=== PATIENT | male | born 1955 | race Caucasian/White ===

== ENCOUNTER 2016-10-07 12:10 | Inpatient (IN) | payer OTHER ==
[~2016-10-07] VITALS: Ht 172.7 cm; Wt 96.2 kg
[2016-10-07] VITALS (8 sets, daily range): BP systolic 117–145; BP diastolic 62–74
--- NOTE | 2016-10-07 12:40 | PHYS DOC ---
Past Medical History Past Medical History: Anemia, Liver Disease Additional Past Medical Histor: HEP C,LIVER CANCER,CANCER REMOVED, Past Surgical History: No Surgical History, Other Additional Past Surgical Histo: VARICES BANDED Alcohol Use: Heavy Drug Use: Cocaine, Marijuana Adult General Chief Complaint Chief Complaint: NAUSEA/VOMITING/DIARRHA HPI HPI Patient is a 61 year old male who presents with nausea vomiting blood. He is in a correctional facility states he has a history of hep C and esophageal varices in addition to liver cancer that is in remission. He states approximately 3 AM this morning he woke up with some nausea and then at 4:30 vomited about a pint of right part of blood. He had some nausea during his MRI that he had somewhat later and then he vomited again approximately 2 hours prior to arrival which he said was some clotted blood and bright red blood. He denies any abdominal pain, chest pain, he states he does have some nausea currently. He states he's had histories of esophageal varices and he had bleeding approximately 10 years ago and then approximately 10 months ago. He states yesterday he had a completely normal day had a bowel movement without any blood in it or any dark stools. He currently is on no medications and takes no aspirin. Review of Systems Review of Systems Constitutional: Denies fever or chills [] Eyes: Denies change in visual acuity, redness, or eye pain [] HENT: Denies nasal congestion or sore throat [] Respiratory: Denies cough or shortness of breath [] Cardiovascular: No additional information not addressed in HPI [] GI: Denies abdominal pain, diarrhea , positive for nausea, vomiting blood : Denies dysuria or hematuria [] Musculoskeletal: Denies back pain or joint pain [] Integument: Denies rash or skin lesions [] Neurologic: Denies headache, focal weakness or sensory changes [] Endocrine: Denies polyuria or polydipsia [] Current Medications Current Medications Current Medications Medications (Trade) Dose Ordered Sig/Venita Start Time Stop Time Status Last Admin Dose Admin Octreotide Acetate/Sodium Chloride (Sandostatin/Iv Sodium Chloride 0.9% 100ml) 101 ml @ 0 mls/hr CONT PRN 10/07/16 15:15 UNV Ondansetron HCl (Zofran) 4 mg 1X ONCE 10/07/16 13:00 10/07/16 13:01 DC 10/07/16 13:14 4 MG Ondansetron HCl 4 mg 4 mg PRN Q8HRS PRN 10/07/16 14:30 10/08/16 14:29 Pantoprazole Sodium 40 mg 40 mg 1X ONCE 10/07/16 15:15 10/07/16 15:16 DC Phytonadione/ Sodium Chloride (Vitamin K/Iv Sodium Chloride 0.9% 50ml) 51 ml @ 102 mls/hr 1X ONCE 10/07/16 15:15 10/07/16 15:44 Allergies Allergies Allergies Coded Allergies Type Severity Reaction Last Updated Verified No Known Drug Allergies 10/07/16 No Physical Exam Physical Exam Constitutional: Well developed, well nourished, no acute distress, non-toxic appearance. [] HENT: Normocephalic, atraumatic, bilateral external ears normal, oropharynx moist, no oral exudates, nose normal. [] Eyes: PERRLA, EOMI, conjunctiva normal, no discharge. [] Neck: Normal range of motion, no tenderness, supple, no stridor. [] Cardiovascular:Heart rate regular rhythm, no murmur [] Lungs & Thorax: Bilateral breath sounds clear to auscultation [] Abdomen: Bowel sounds normal, soft, no tenderness, no masses, no pulsatile masses. [] Skin: Warm, dry, no erythema, no rash. [] Back: No tenderness, no CVA tenderness. [] Extremities: No tenderness, no cyanosis, no clubbing, ROM intact, no edema. [] Neurologic: Alert and oriented X 3, normal motor function, normal sensory function, no focal deficits noted. [] Psychologic: Affect normal, judgement normal, mood normal. [] Current Patient Data Vital Signs Vital Signs Date Time Temp Pulse Resp B/P Pulse Ox O2 Delivery O2 Flow Rate FiO2 10/07/16 12:17 98.2 101 18 142/88 97 Room Air 98.2 Lab Values Laboratory Tests Test 10/07/16 13:00 10/07/16 14:10 White Blood Count 6.1x10^3/uL (4.0-11.0) Red Blood Count 4.15x10^6/uL (4.30-5.70) L Hemoglobin 12.7g/dL (13.0-17.5) L Hematocrit 36.7% (39.0-53.0) L Mean Corpuscular Volume 89fL (79-100) Mean Corpuscular Hemoglobin 31pg (25-35) Mean Corpuscular Hemoglobin Concent 35g/dL (31-37) Red Cell Distribution Width 14.4% (11.5-14.5) Platelet Count 68x10^3/uL (140-400) L Neutrophils (%) (Auto) 85% (31-73) H Lymphocytes (%) (Auto) 9% (24-48) L Monocytes (%) (Auto) 6% (0-9) Eosinophils (%) (Auto) 0% (0-3) Basophils (%) (Auto) 0% (0-3) Neutrophils # (Auto) 5.2x10^3uL (1.8-7.7) Lymphocytes # (Auto) 0.5x10^3/uL (1.0-4.8) L Monocytes # (Auto) 0.4x10^3/uL (0.0-1.1) Eosinophils # (Auto) 0.0x10^3/uL (0.0-0.7) Basophils # (Auto) 0.0x10^3/uL (0.0-0.2) Prothrombin Time 17.3SEC (11.7-14.0) H Prothrombin Time INR 1.5 (0.8-1.1) H PTT 36SEC (24-38) Sodium Level 135mmol/L (136-145) L Potassium Level 5.1mmol/L (3.5-5.1) Chloride Level 103mmol/L (98-107) Carbon Dioxide Level 26mmol/L (21-32) Anion Gap 6 (6-14) Blood Urea Nitrogen 27mg/dL (8-26) H Creatinine 1.0mg/dL (0.7-1.3) Estimated GFR (Cockcroft-Gault) 76.5 Glucose Level 284mg/dL (70-99) H Calcium Level 8.4mg/dL (8.5-10.1) L Total Bilirubin 2.4mg/dL (0.2-1.0) H Direct Bilirubin 0.5mg/dL (0.0-0.2) H Aspartate Amino Transferase (AST) 29U/L (15-37) Alanine Aminotransferase (ALT) 28U/L (16-63) Alkaline Phosphatase 61U/L (46-116) Creatine Kinase 200U/L (39-308) Creatine Kinase MB (Mass) 1.6ng/mL (0.0-3.6) Creatine Kinase MB Relative Index 0.8% (0-4) Troponin I Quantitative < 0.017ng/mL (0.000-0.055) Total Protein 7.0g/dL (6.4-8.2) Albumin 3.4g/dL (3.4-5.0) Urine Collection Type Unknown Urine Color Yellow Urine Clarity Clear Urine pH 6.5 Urine Specific [place] >=1.030 Urine Protein Negativemg/dL (NEG-TRACE) Urine Glucose (UA) >=1000mg/dL (NEG) Urine Ketones (Stick) Tracemg/dL (NEG) Urine Blood Negative (NEG) Urine Nitrite Negative (NEG) Urine Bilirubin Negative (NEG) Urine Urobilinogen Dipstick 1.0mg/dL (0.2 mg/dL) Urine Leukocyte Esterase Negative (NEG) Urine RBC Rare/HPF (0-2) Urine WBC 0/HPF (0-4) Urine Squamous Epithelial Cells Occ/LPF Urine Bacteria 0/HPF (0-FEW) Laboratory Tests 10/07/16 13:00 Laboratory Tests 10/07/16 13:00 EKG EKG G shows sinus rhythm with a rate of [address] elevations, T-wave inversions in lead 3, left axis deviation, QTC 439 ms, as interpreted by me. Radiology/Procedures Radiology/Procedures [facility] [address] [place] [address] IMAGING REPORT Signed PATIENT: ROSEANNA ZHOU ACCOUNT: [id number] : 1955 LOCATION: ER AGE: 61 SEX: M EXAM STATUS: REG ER ORD. PHYSICIAN: CLAIRE GAYLE MD REASON: vomiting blood PROCEDURE: ACUTE ABDOMEN SERIES Abdomen series with chest, 3 views, 10/07/2016: History: Vomiting blood There is gas and stool scattered throughout the colon in a nonspecific pattern. No free air is seen in the abdomen. There is no evidence of organomegaly. Rim-like radiopacities projected over the right upper quadrant most likely represent gallstones. The heart size and pulmonary vascularity are normal. There are calcified mediastinal and left hilar lymph nodes. No pulmonary infiltrate is seen. There is no evidence of pleural fluid. IMPRESSION: 1. No acute abdominal abnormality is detected. 2. Cholelithiasis DICTATED and SIGNED BY: CATRINA GRAY MD DATE: 10/07/16 1323 CC: CLAIRE GAYLE MD; NO PCP ~ Impressions: GI bleed Hepatitis C History of esophageal varices Course & Med Decision Making Course & Med Decision Making Pertinent Labs and Imaging studies reviewed. (See chart for details) She has not had any vomiting or bowel movement since he's been in the department. His vitals were stable. He is being admitted to be watched overnight. I did place a consult with GI. Interim orders have been written. He is in stable condition be admitted to Dr. Mulligan. Marisela Disclaimer Marisela Disclaimer This electronic medical record was generated, in whole or in part, using a voice recognition dictation system. Departure Departure Impression: Primary Impression: GI bleed Disposition: ADMITTED INPATIENT Admitting Physician: Pao Mulligan Condition: STABLE CLAIRE GAYLE MD Oct 07, 2016 12:40
[2016-10-07] MEDS ORDERED: ONDANSETRON PF 4 MG/2 ML VIAL. IV ONE (13:00)
[2016-10-07 13:14] LABS: BASO % 0 % (0-3); EOS % 0 % (0-3); HEMATOCRIT 36.7 % (39.0-53.0); HEMOGLOBIN 12.7 g/dL (13.0-17.5); LYMPH # 0.5 x10^3/uL (1.0-4.8); LYMPH % 9 % (24-48); MEAN CORPUSCULAR HEMOGLOBIN 31 pg (25-35); MEAN CORPUSCULAR HGB CONC 35 g/dL (31-37); MEAN CORPUSCULAR VOLUME 89 fL (79-100); MONO % 6 % (0-9); NEUT % 85 % (31-73); PLATELET COUNT 68 x10^3/uL (140-400); RED BLOOD COUNT 4.15 x10^6/uL (4.30-5.70); RED CELL DISTRIBUTION WIDTH 14.4 % (11.5-14.5); WHITE BLOOD COUNT 6.1 x10^3/uL (4.0-11.0)
[2016-10-07 13:27] LABS: CALCIUM 8.4 mg/dL (8.5-10.1); GFR 76.5; POTASSIUM 5.1 mmol/L (3.5-5.1)
--- NOTE | 2016-10-07 13:27 | RAD ---
Abdomen series with chest, 3 views, 10/07/2016: History: Vomiting blood There is gas and stool scattered throughout the colon in a nonspecific pattern. No free air is seen in the abdomen. There is no evidence of organomegaly. Rim-like radiopacities projected over the right upper quadrant most likely represent gallstones. The heart size and pulmonary vascularity are normal. There are calcified mediastinal and left hilar lymph nodes. No pulmonary infiltrate is seen. There is no evidence of pleural fluid. IMPRESSION: 1. No acute abdominal abnormality is detected. 2. Cholelithiasis
[2016-10-07 13:28] LABS: INR 1.5 (0.8-1.1); PROTHROMBIN TIME PATIENT 17.3 SEC (11.7-14.0)
--- NOTE | 2016-10-07 13:28 | EKG ---
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
[2016-10-07 13:33] LABS: ALBUMIN 3.4 g/dL (3.4-5.0); DIRECT BILIRUBIN 0.5 mg/dL (0.0-0.2); TOTAL BILIRUBIN 2.4 mg/dL (0.2-1.0)
[2016-10-07 13:42] LABS: CKMB MASS 1.6 ng/mL (0.0-3.6)
[2016-10-07 14:28] LABS: BILIRUBIN,URINE NEGATIVE (NEG); GLUCOSE,URINE >=1000 mg/dL (NEG); NITRITE,URINE NEGATIVE (NEG); PH,URINE 6.5; PROTEIN,URINE NEGATIVE (NEG-TRACE)
[2016-10-07 14:30] LABS: BACTERIA,URINE 0 /HPF (0-FEW); RBC,URINE RARE /HPF (0-2); SQUAMOUS EPITHELIAL CELL,UR OCC /LPF; WBC,URINE 0 /HPF (0-4)
[2016-10-07] MEDS ORDERED: ONDANSETRON PF 4 MG/2 ML VIAL. IV PRN (14:30)
[2016-10-07] MEDS ORDERED: PANTOPRAZOLE IV PUSH 40 MG VIAL. IVP ONE (15:15)
[2016-10-07] MEDS ORDERED: PHYTONADIONE (VIT K1) 10 MG in IV NORMAL SALINE 50ML 50 ML IV ONE (15:15)
--- NOTE | 2016-10-07 15:18 | PDOC1 ---
History and Physical Date of Admission Date of Admission DATE: 10/07/16 TIME: 15:12 Identification/Chief Complaint Chief Complaint vomited blood Problems: Source Source: Chart review, Patient History of Present Illness History of Present Illness Mr. Echavarria, is a 61 year old male who presents with nausea, and s/p X1 vomiting blood. He is incarcerated [facility], prior history of Liver Ca, hepatic cirrhosis and Hep C. Hep C genotype 2 treated with biologic. Prior Hepatic cancer treatment years ago with injected EtOH, at [facility] many years ago. TOday, 3 AM this morning he woke up with some nausea and then at 4:30 vomited a subtantial amount of bright blood. he has not vomited in the ER, but has abd fullness, no change in stool . He states he's had histories of esophageal varices and he had bleeding approximately 10 years ago and then approximately 10 months ago. Past Medical History Cardiovascular: No pertinent hx Pulmonary: No pertinent hx GI: GI bleed, Other (cirrhosis) Heme/Onc: Cancer Infectious disease: Other (hep c) Renal/: No pertinent hx Endocrine: No pertinent hx Dermatology: No pertinent hx Family History Family History: No Significant Social History Smoke: No ALCOHOL: none Current Problem List Problem List Problems Medical Problems: (1) GI bleed Status: Acute Problems: Current Medications Current Medications Current Medications Ondansetron HCl (Zofran) 4 mg 1X ONCE IV Last administered on 10/07/16t 13:14 ; Start 10/07/16 at 13:00; Stop 10/07/16 at 13:01; Status DC Ondansetron HCl (Zofran) 4 mg PRN Q8HRS PRN IV NAUSEA/VOMITING; Start 10/07/16 at 14:30; Stop 10/08/16 at 14:29 Allergies Allergies: Coded Allergies: No Known Drug Allergies (Unverified , 10/07/16) ROS General: No: Appetite, Chills, Fatigue, Malaise, Night Sweats, Other PSYCHOLOGICAL ROS: No: Anxiety, Behavioral Disorder, Concentration difficultie , Decreased libido, Depression, Disorientation, Hallucinations, Hostility, Irritablity, Memory difficulties, Mood Swings, Obsessive thoughts, Other, Physical abuse, Sexual abuse, Sleep disturbances, Suicidal ideation Eyes: No Blurry vision, No Decreased vision, No Double vision, No Dry eyes, No Excessive tearing, No Eye Pain, No Itchy Eyes, No Loss of vision, No Other, No Photophobia, No Scotomata, No Uses contacts, No Uses glasses HEENT: No: Epistaxis, Heacaches, Hearing change, Nasal congestion, Nasal discharge, Oral lesions, Other, Sinus pain, Sneezing, Snoring, Sore Throat, Tinnitus, Vertigo, Visual Changes, Vocal changes Respiratory: No: Cough, Hemoptysis, Orthopnea, Other, Pleuritic Pain, SOB with excertion, Shortness of breath, Sputum Changes, Stridor, Tachypnea, Wheezing Cardiovascular: No Chest Pain, No Edema, No Lt Headedness, No Orthopnea, No Other, No Palpitations, No Paroxysmal Noc. Dyspnea Gastrointestinal: Yes Nausea, Yes Other (hematemesis) Genitourinary: No , No , No , No , No , No , No , No Discharge, No Dysuria, No Flank Pain, No Frequency, No Hematuria, No Incontinence, No Other, No Pain, No Retention, No Urgency Musculoskeletal: Yes Joint Pain (r shoulder), No Gait Disturbance, No Joint Stiffness, No Joint Swelling, No Muscle Pain, No Muscular Weakness, No Other, No Pain In:, No Swelling In: Neurological: No Behavorial Changes, No Bowel/Bladder ControlChng, No Confusion , No Dizziness, No Gait Disturbance, No Headaches, No Impaired Coord/balance, No Memory Loss, No Numbness/Tingling, No Other, No Seizures, No Speech Problems , No Tremors, No Visual Changes, No Weakness Skin: No Acne, No Dry Skin, No Eczema, No Hair Changes, No Lumps, No Mole Changes, No Mottling, No Nail Changes, No Other, No Pruritus, No Rash, No Skin Lesion Changes Physical Exam General: Alert, Oriented X3, Cooperative, No acute distress HEENT: PERRLA, EOMI, Mucous membr. moist/pink Lungs: Clear to auscultation Heart: S1S2, no gallops, no murmurs Abdomen: Normal bowel sounds, Soft, No tenderness Rectal Exam: not examined Extremities: No edema Neuro: Normal speech, Strength at 5/5 X4 ext, Normal tone, Sensation intact Psych/Mental Status: Mental status NL, Mood NL Vitals Vitals Vital Signs Date Time Temp Pulse Resp B/P Pulse Ox O2 Delivery O2 Flow Rate FiO2 4/27/17 12:17 98.2 101 18 142/88 97 Room Air 98.2 Labs Labs Laboratory Tests Test 10/07/16 13:00 10/07/16 14:10 White Blood Count 6.1x10^3/uL (4.0-11.0) Red Blood Count 4.15x10^6/uL (4.30-5.70) Hemoglobin 12.7g/dL (13.0-17.5) Hematocrit 36.7% (39.0-53.0) Mean Corpuscular Volume 89fL (79-100) Mean Corpuscular Hemoglobin 31pg (25-35) Mean Corpuscular Hemoglobin Concent 35g/dL (31-37) Red Cell Distribution Width 14.4% (11.5-14.5) Platelet Count 68x10^3/uL (140-400) Neutrophils (%) (Auto) 85% (31-73) Lymphocytes (%) (Auto) 9% (24-48) Monocytes (%) (Auto) 6% (0-9) Eosinophils (%) (Auto) 0% (0-3) Basophils (%) (Auto) 0% (0-3) Neutrophils # (Auto) 5.2x10^3uL (1.8-7.7) Lymphocytes # (Auto) 0.5x10^3/uL (1.0-4.8) Monocytes # (Auto) 0.4x10^3/uL (0.0-1.1) Eosinophils # (Auto) 0.0x10^3/uL (0.0-0.7) Basophils # (Auto) 0.0x10^3/uL (0.0-0.2) Prothrombin Time 17.3SEC (11.7-14.0) Prothromb Time International Ratio 1.5 (0.8-1.1) Activated Partial Thromboplast Time 36SEC (24-38) Sodium Level 135mmol/L (136-145) Potassium Level 5.1mmol/L (3.5-5.1) Chloride Level 103mmol/L (98-107) Carbon Dioxide Level 26mmol/L (21-32) Anion Gap 6 (6-14) Blood Urea Nitrogen 27mg/dL (8-26) Creatinine 1.0mg/dL (0.7-1.3) Estimated GFR (Cockcroft-Gault) 76.5 Glucose Level 284mg/dL (70-99) Calcium Level 8.4mg/dL (8.5-10.1) Total Bilirubin 2.4mg/dL (0.2-1.0) Direct Bilirubin 0.5mg/dL (0.0-0.2) Aspartate Amino Transf (AST/SGOT) 29U/L (15-37) Alanine Aminotransferase (ALT/SGPT) 28U/L (16-63) Alkaline Phosphatase 61U/L (46-116) Creatine Kinase 200U/L (39-308) Creatine Kinase MB (Mass) 1.6ng/mL (0.0-3.6) Creatine Kinase MB Relative Index 0.8% (0-4) Troponin I Quantitative < 0.017ng/mL (0.000-0.055) Total Protein 7.0g/dL (6.4-8.2) Albumin 3.4g/dL (3.4-5.0) Urine Collection Type Unknown Urine Color Yellow Urine Clarity Clear Urine pH 6.5 Urine Specific [place] >=1.030 Urine Protein Negativemg/dL (NEG-TRACE) Urine Glucose (UA) >=1000mg/dL (NEG) Urine Ketones (Stick) Tracemg/dL (NEG) Urine Blood Negative (NEG) Urine Nitrite Negative (NEG) Urine Bilirubin Negative (NEG) Urine Urobilinogen Dipstick 1.0mg/dL (0.2 mg/dL) Urine Leukocyte Esterase Negative (NEG) Urine RBC Rare/HPF (0-2) Urine WBC 0/HPF (0-4) Urine Squamous Epithelial Cells Occ/LPF Urine Bacteria 0/HPF (0-FEW) Laboratory Tests Test 10/07/16 13:00 10/07/16 14:10 White Blood Count 6.1x10^3/uL (4.0-11.0) Red Blood Count 4.15x10^6/uL (4.30-5.70) Hemoglobin 12.7g/dL (13.0-17.5) Hematocrit 36.7% (39.0-53.0) Mean Corpuscular Volume 89fL (79-100) Mean Corpuscular Hemoglobin 31pg (25-35) Mean Corpuscular Hemoglobin Concent 35g/dL (31-37) Red Cell Distribution Width 14.4% (11.5-14.5) Platelet Count 68x10^3/uL (140-400) Neutrophils (%) (Auto) 85% (31-73) Lymphocytes (%) (Auto) 9% (24-48) Monocytes (%) (Auto) 6% (0-9) Eosinophils (%) (Auto) 0% (0-3) Basophils (%) (Auto) 0% (0-3) Neutrophils # (Auto) 5.2x10^3uL (1.8-7.7) Lymphocytes # (Auto) 0.5x10^3/uL (1.0-4.8) Monocytes # (Auto) 0.4x10^3/uL (0.0-1.1) Eosinophils # (Auto) 0.0x10^3/uL (0.0-0.7) Basophils # (Auto) 0.0x10^3/uL (0.0-0.2) Prothrombin Time 17.3SEC (11.7-14.0) Prothromb Time International Ratio 1.5 (0.8-1.1) Activated Partial Thromboplast Time 36SEC (24-38) Sodium Level 135mmol/L (136-145) Potassium Level 5.1mmol/L (3.5-5.1) Chloride Level 103mmol/L (98-107) Carbon Dioxide Level 26mmol/L (21-32) Anion Gap 6 (6-14) Blood Urea Nitrogen 27mg/dL (8-26) Creatinine 1.0mg/dL (0.7-1.3) Estimated GFR (Cockcroft-Gault) 76.5 Glucose Level 284mg/dL (70-99) Calcium Level 8.4mg/dL (8.5-10.1) Total Bilirubin 2.4mg/dL (0.2-1.0) Direct Bilirubin 0.5mg/dL (0.0-0.2) Aspartate Amino Transf (AST/SGOT) 29U/L (15-37) Alanine Aminotransferase (ALT/SGPT) 28U/L (16-63) Alkaline Phosphatase 61U/L (46-116) Creatine Kinase 200U/L (39-308) Creatine Kinase MB (Mass) 1.6ng/mL (0.0-3.6) Creatine Kinase MB Relative Index 0.8% (0-4) Troponin I Quantitative < 0.017ng/mL (0.000-0.055) Total Protein 7.0g/dL (6.4-8.2) Albumin 3.4g/dL (3.4-5.0) Urine Collection Type Unknown Urine Color Yellow Urine Clarity Clear Urine pH 6.5 Urine Specific [place] >=1.030 Urine Protein Negativemg/dL (NEG-TRACE) Urine Glucose (UA) >=1000mg/dL (NEG) Urine Ketones (Stick) Tracemg/dL (NEG) Urine Blood Negative (NEG) Urine Nitrite Negative (NEG) Urine Bilirubin Negative (NEG) Urine Urobilinogen Dipstick 1.0mg/dL (0.2 mg/dL) Urine Leukocyte Esterase Negative (NEG) Urine RBC Rare/HPF (0-2) Urine WBC 0/HPF (0-4) Urine Squamous Epithelial Cells Occ/LPF Urine Bacteria 0/HPF (0-FEW) VTE Prophylaxis Ordered VTE Prophylaxis Devices: Yes VTE Pharmacological Prophylaxi: Contraindicated Assessment/Plan Assessment/Plan Acute blood loss anemia Upper GI bleed, suspect esoph varices, start octeotide, consult GI, Q6 CBC , transfuse if needed PPI IV X1 cirrhosis, INR 1.5 will give vit K bili 2.4, plt about 70k, he reports this is normal for him admit from ER, vitals very stable Hep C, treated incarcerated admit WIL TALBERT MD Oct 07, 2016 15:18
--- NOTE | 2016-10-07 15:23 | ACF ---
Admission Forms Criteria GASTROINTESTINAL BLEEDING Clinical Indications for Inpatient Care (Place 'X' for any and all applicable criteria): Ongoing inpatient care may be indicated for gastrointestinal bleeding with ANY ONE of the following (4)(20)(21)(22)(23)(24): [X]I. Active bleeding (eg, fresh voluminous blood in emesis or nasogastric aspirate, or per rectum) [ ]II. Hemodynamic instability [ ]III. Anticoagulation therapy or coagulopathy ((eg, advanced liver disease, irreversible anticoagulation) [ ]IV. Ischemic colitis (22) [ ]V. Endoscopy showing arterial bleeding, adherent clot, nonbleeding visible vessel, varices, flat red spots, ulcer size greater than 2 cm, or portal hypertensive gastropathy [ ]. High-risk low platelet count [ ]VII. Anemia requiring inpatient care as indicated by ANY ONE of the following a)[ ] Cognitive impairment b)[ ] Syncope c)[ ] Heart failure d)[ ] Chest pain e)[ ] Dyspnea f)[ ] Other findings suggesting inadequate perfusion (eg, peripheral or myocardial ischemia, end organ dysfunction) [ ]VIII. High-risk low platelet count [ ]IX. Suspected variceal cause of bleeding as indicated by ANY ONE of the following(27)(28): a)[ ] Known varices b)[ ] Hepatomegaly or splenomegaly c)[ ] Ascites d)[ ] Jaundice or scleral icterus e)[ ] History of liver disease (eg, cirrhosis) f)[ ] Physical findings of portal hypertension (eg, caput medusa) g)[ ] Comorbid disorder indicating risk for portal vein thrombosis (eg , abdominal surgery, sepsis, shock, exchange transfusion, prior umbilical vein catheterization) Extended stay may be needed until ALL of the following are present(20)(38)(47): [ ]a) Hemodynamic stability [ ]b) No evidence of active bleeding (eg, stable Hematocrit) [ ]c) Platelet count, prothrombin time, and partial thromboplastin time acceptable for next level of care [ ]d) Surgical or other acute intervention not needed [ ]e) Oral hydration and diet tolerated The original [employer] content created by Kylah Samaniego has been revised. The portions of the content which have been revised are identified through the use of italic text or in bold, and Kylah Samaniego has neither reviewed nor approved the modified material. All other unmodified content is copyright [facility]. Please see references footnoted in the original [facility] edition 2016 Admission Criteria Met?: Yes KALIE DOMÍNGUEZ Oct 07, 2016 15:23
--- NOTE | 2016-10-07 16:41 | PDOC2 ---
GI CONSULT Reason For Consult: GI Bleed HPI: HPI: 61 y/o inmate evaluated in ER. PMH significant for Hep C and liver cancer, both apparently treated at [facility] in [place] during the past year. H/o variceal bleeding and banding (three times total), also most recently within the past year. Awoke in the middle of the night w/ abdominal fullness and nausea, vomited 1/2 quart of red blood about 1.5 hours later. Hematemesis recurred once more before brought to ER (after he had an abd MRI through either [place] or [facility]). Denies dizziness, SOA, chest pain, dysphagia/ odynophagia, abd pain, reflux/heartburn, weight loss, change in appetite, diarrhea, constipation, hematochezia, and melena. Denies NSAID use; in fact, takes no medications. H/o heavy alcohol use, sober x 6 years except for an 11 day period. H/o cocaine and tobacco use. Labs as below. Started on octreotide. Last PO intake last night. PMH: PMH: Hep C, liver cancer, variceal bleed w/ previous banding, DM FH: Family History: No pertinent hx (denies GI cancers) Social History: Smoke: Quit ALCOHOL: other (previously heavy, sober ~6 years) Drugs: Cocaine ROS: GEN: Denies fevers, chills, sweats HEENT: Denies blurred vision, sore throat CV: Denies chest pain RESP: Denies shortness of air, cough GI: Per HPI : Denies hematuria, dysuria ENDO: Denies weight changes NEURO: Denies confusion, dizziness MSK: Denies weakness, joint pain/swelling SKIN: Denies jaundice, pruritus VItals: Vitals: Vital Signs Date Time Temp Pulse Resp B/P Pulse Ox O2 Delivery O2 Flow Rate FiO2 10/07/16 15:44 90 20 127/67 95 Room Air 10/07/16 12:17 98.2 98.2 Labs: Labs: Laboratory Tests Test 10/07/16 13:00 10/07/16 14:10 White Blood Count 6.1x10^3/uL (4.0-11.0) Red Blood Count 4.15x10^6/uL (4.30-5.70) Hemoglobin 12.7g/dL (13.0-17.5) Hematocrit 36.7% (39.0-53.0) Mean Corpuscular Volume 89fL (79-100) Mean Corpuscular Hemoglobin 31pg (25-35) Mean Corpuscular Hemoglobin Concent 35g/dL (31-37) Red Cell Distribution Width 14.4% (11.5-14.5) Platelet Count 68x10^3/uL (140-400) Neutrophils (%) (Auto) 85% (31-73) Lymphocytes (%) (Auto) 9% (24-48) Monocytes (%) (Auto) 6% (0-9) Eosinophils (%) (Auto) 0% (0-3) Basophils (%) (Auto) 0% (0-3) Neutrophils # (Auto) 5.2x10^3uL (1.8-7.7) Lymphocytes # (Auto) 0.5x10^3/uL (1.0-4.8) Monocytes # (Auto) 0.4x10^3/uL (0.0-1.1) Eosinophils # (Auto) 0.0x10^3/uL (0.0-0.7) Basophils # (Auto) 0.0x10^3/uL (0.0-0.2) Prothrombin Time 17.3SEC (11.7-14.0) Prothromb Time International Ratio 1.5 (0.8-1.1) Activated Partial Thromboplast Time 36SEC (24-38) Sodium Level 135mmol/L (136-145) Potassium Level 5.1mmol/L (3.5-5.1) Chloride Level 103mmol/L (98-107) Carbon Dioxide Level 26mmol/L (21-32) Anion Gap 6 (6-14) Blood Urea Nitrogen 27mg/dL (8-26) Creatinine 1.0mg/dL (0.7-1.3) Estimated GFR (Cockcroft-Gault) 76.5 Glucose Level 284mg/dL (70-99) Calcium Level 8.4mg/dL (8.5-10.1) Total Bilirubin 2.4mg/dL (0.2-1.0) Direct Bilirubin 0.5mg/dL (0.0-0.2) Aspartate Amino Transf (AST/SGOT) 29U/L (15-37) Alanine Aminotransferase (ALT/SGPT) 28U/L (16-63) Alkaline Phosphatase 61U/L (46-116) Creatine Kinase 200U/L (39-308) Creatine Kinase MB (Mass) 1.6ng/mL (0.0-3.6) Creatine Kinase MB Relative Index 0.8% (0-4) Troponin I Quantitative < 0.017ng/mL (0.000-0.055) Total Protein 7.0g/dL (6.4-8.2) Albumin 3.4g/dL (3.4-5.0) Urine Collection Type Unknown Urine Color Yellow Urine Clarity Clear Urine pH 6.5 Urine Specific Reading >=1.030 Urine Protein Negativemg/dL (NEG-TRACE) Urine Glucose (UA) >=1000mg/dL (NEG) Urine Ketones (Stick) Tracemg/dL (NEG) Urine Blood Negative (NEG) Urine Nitrite Negative (NEG) Urine Bilirubin Negative (NEG) Urine Urobilinogen Dipstick 1.0mg/dL (0.2 mg/dL) Urine Leukocyte Esterase Negative (NEG) Urine RBC Rare/HPF (0-2) Urine WBC 0/HPF (0-4) Urine Squamous Epithelial Cells Occ/LPF Urine Bacteria 0/HPF (0-FEW) Allergies: Coded Allergies: No Known Drug Allergies (Unverified , 10/07/16) Medications: Current Medications Medications (Trade) Dose Ordered Sig/Venita Route PRN Reason Start Time Stop Time Status Last Admin Dose Admin Ondansetron HCl 4 mg 4 mg 1X ONCE IV 10/07/16 13:00 10/07/16 13:01 DC 10/07/16 13:14 Phytonadione/ Sodium Chloride (Vitamin K/Iv Sodium Chloride 0.9% 50ml) 51 ml @ 102 mls/hr 1X ONCE IV 10/07/16 15:15 10/07/16 15:44 DC 10/07/16 15:42 Pantoprazole Sodium (Protonix Vial) 40 mg 1X ONCE IVP 10/07/16 15:15 10/07/16 15:16 DC 10/07/16 15:26 Imaging: Imaging: Acute Abd Series IMPRESSION: 1. No acute abdominal abnormality is detected. 2. Cholelithiasis PE: GEN: NAD HEENT: Atraumatic, PERRL LUNGS: CTAB anteriorly HEART: RRR ABD: NABS, S/ND/NT EXTREMITY: No edema SKIN: No rashes, no jaundice NEURO/PSYCH: A & O 3 A/P: A/P: Hematemesis H/o Hep C, alcohol/substance abuse, liver cancer -reports both treated within the past year in [place], basically sober x 6 years H/o esophageal varices w/ previous banding -last in [place] within the past year CRC screen -reports normal colonoscopy in [place] -- EGD this afternoon. JOSELIN MCDONALD Oct 07, 2016 16:41
[2016-10-07] MEDS ORDERED: PROPOFOL 40 ML IV ONE (16:58)
[2016-10-07] MEDS ORDERED: LIDOCAINE 2% PF Vial for OR 5 ML VIAL. ONE (16:58)
--- NOTE | 2016-10-07 17:38 | PDOC4 ---
PROCEDURE Procedure EGD Indication: ugi bleed/history of varices Meds: per anesthesia Findings: E--scarring distally from prior banding. NO varices. G-clots in body. No ulcer, etc. large gastric varix in cardia w/o active bleeding No others seen due to clots in the way. D-Normal to second portion. Ilya. well. IMP: Gastric varices, likely source of recent bleeding and not amenable to endoscopic treatment here. Esophageal scarring from prior banding w/o residual varices. REC: ICU octreotide/protonix STAT CT to r/o splenic and/or portal vein thrombosis. IR consult re; TIPS. Alternatively could try to find tertiary center treating gastric varices with glue injection. TIPS not needed emergently, but soon. Monitor for recurrent bleeding. ADRIENNE MYLES MD Oct 07, 2016 17:38
[2016-10-07] MEDS ORDERED: PANTOPRAZOLE IV PUSH 40 MG VIAL. IVP SCH (18:00)
[2016-10-07 18:48] LABS: HEMATOCRIT 35.3 % (39.0-53.0); HEMOGLOBIN 12.5 g/dL (13.0-17.5); RED BLOOD COUNT 4.06 x10^6/uL (4.30-5.70); RED CELL DISTRIBUTION WIDTH 14.4 % (11.5-14.5); WHITE BLOOD COUNT 6.3 x10^3/uL (4.0-11.0)
--- NOTE | 2016-10-07 19:09 | RAD ---
Examination: CT of the abdomen pelvis without contrast. HISTORY History of gastric varices, thrombosis. COMPARISON None available. TECHNIQUE Axial CT images of the abdomen pelvis were performed without contrast. Coronal sagittal reformats were performed. Exposure: One or more of the following dose reduction technique were utilized for this examination: 1. Automated exposure control. 2.Adjustment of MA and /or KV according to patient size. 3. Use of iterative reconstruction technique. Findings: The visualized bibasilar lungs grossly appears unremarkable. No evidence of free air identified in the abdomen. The evaluation of the solid organs is limited lack of IV contrast. Evaluation the bowel is limited lack of oral contrast. The evaluation of vascular structures limited due to lack of IV contrast. Cirrhotic appearance of the liver is identified. The spleen measures 15 centimeters in length likely mild splenomegaly. Multiple calcified gallstones identified within the gallbladder. The stomach is mildly distended. Multiple varices identified in the region the gastroesophageal junction. The visualized pancreas grossly appears unremarkable. Few varices identified in the perigastric, perisplenic region proximally. No evidence of intrarenal collecting system calculi identified. The small bowel is nondilated. The appendix is normal. Feces and gas noted throughout the colon. The urinary bladder is mildly distended. The caliber of the aorta grossly appears unremarkable. No evidence of lytic bony destructive lesion. IMPRESSION 1. Findings consistent with cirrhosis of liver with splenomegaly and changes of portal hypertension with multiple gastric varices and varices in the upper abdomen about the stomach and spleen identified. 2. Multiple gallstones identified within the gallbladder. Electronically signed by: Daryn Fitzgerald (Oct 07, 2016 19:08:24)
[2016-10-07] MEDS: OCTREOTIDE 500 MCG in IV NORMAL SALINE 100ML 100 ML IV PRN (20:48)
[2016-10-08] VITALS (13 sets, daily range): BP systolic 102–123; BP diastolic 57–67
[2016-10-08] MEDS: OCTREOTIDE 500 MCG in IV NORMAL SALINE 100ML 100 ML IV PRN (03:19)
[2016-10-08 04:46] LABS: BASO % 0 % (0-3); EOS % 1 % (0-3); HEMATOCRIT 31.4 % (39.0-53.0); LYMPH % 24 % (24-48); MEAN CORPUSCULAR HEMOGLOBIN 31 pg (25-35); MEAN CORPUSCULAR HGB CONC 35 g/dL (31-37); MEAN CORPUSCULAR VOLUME 88 fL (79-100); MONO % 10 % (0-9); NEUT % 65 % (31-73); PLATELET COUNT 48 x10^3/uL (140-400); RED BLOOD COUNT 3.57 x10^6/uL (4.30-5.70); RED CELL DISTRIBUTION WIDTH 14.5 % (11.5-14.5); WHITE BLOOD COUNT 4.1 x10^3/uL (4.0-11.0)
[2016-10-08 05:00] LABS: INR 1.5 (0.8-1.1); PROTHROMBIN TIME PATIENT 17.1 SEC (11.7-14.0)
[2016-10-08 05:05] LABS: ALBUMIN 2.9 g/dL (3.4-5.0); ALBUMIN/GLOBULIN RATIO 0.9 (1.0-1.7); CALCIUM 8.2 mg/dL (8.5-10.1); GFR 76.5; TOTAL BILIRUBIN 1.6 mg/dL (0.2-1.0); TOTAL PROTEIN 6.3 g/dL (6.4-8.2)
[2016-10-08 11:00] LABS: HEMATOCRIT 30.1 % (39.0-53.0); RED BLOOD COUNT 3.48 x10^6/uL (4.30-5.70); RED CELL DISTRIBUTION WIDTH 14.6 % (11.5-14.5); WHITE BLOOD COUNT 3.4 x10^3/uL (4.0-11.0)
--- NOTE | 2016-10-08 11:22 | PDOC ---
Subjective: Subjective: No bleeding, no pain. Hungry. Objective: Objective: D/w RN, Dr. Manrique - transfer to initiated per Dr. Johnson's suggestion. Vital Signs: Vital Signs Date Time Temp Pulse Resp B/P Pulse Ox O2 Delivery O2 Flow Rate FiO2 10/08/16 06:00 82 14 118/57 95 Room Air 10/08/16 04:00 98.5 98.5 10/07/16 17:20 3 Labs: Laboratory Tests Test 10/07/16 13:00 10/07/16 14:10 10/07/16 16:44 10/07/16 17:40 White Blood Count 6.1x10^3/uL 6.3x10^3/uL Red Blood Count 4.15x10^6/uL 4.06x10^6/uL Hemoglobin 12.7g/dL 12.5g/dL Hematocrit 36.7% 35.3% Mean Corpuscular Volume 89fL 87fL Mean Corpuscular Hemoglobin 31pg 31pg Mean Corpuscular Hemoglobin Concent 35g/dL 36g/dL Red Cell Distribution Width 14.4% 14.4% Platelet Count 68x10^3/uL 61x10^3/uL Neutrophils (%) (Auto) 85% Lymphocytes (%) (Auto) 9% Monocytes (%) (Auto) 6% Eosinophils (%) (Auto) 0% Basophils (%) (Auto) 0% Neutrophils # (Auto) 5.2x10^3uL Lymphocytes # (Auto) 0.5x10^3/uL Monocytes # (Auto) 0.4x10^3/uL Eosinophils # (Auto) 0.0x10^3/uL Basophils # (Auto) 0.0x10^3/uL Prothrombin Time 17.3SEC Prothromb Time International Ratio 1.5 Activated Partial Thromboplast Time 36SEC Sodium Level 135mmol/L Potassium Level 5.1mmol/L Chloride Level 103mmol/L Carbon Dioxide Level 26mmol/L Anion Gap 6 Blood Urea Nitrogen 27mg/dL Creatinine 1.0mg/dL Estimated GFR (Cockcroft-Gault) 76.5 Glucose Level 284mg/dL Calcium Level 8.4mg/dL Total Bilirubin 2.4mg/dL Direct Bilirubin 0.5mg/dL Aspartate Amino Transf (AST/SGOT) 29U/L Alanine Aminotransferase (ALT/SGPT) 28U/L Alkaline Phosphatase 61U/L Creatine Kinase 200U/L Creatine Kinase MB (Mass) 1.6ng/mL Creatine Kinase MB Relative Index 0.8% Troponin I Quantitative < 0.017ng/mL Total Protein 7.0g/dL Albumin 3.4g/dL Urine Collection Type Unknown Urine Color Yellow Urine Clarity Clear Urine pH 6.5 Urine Specific [place] >=1.030 Urine Protein Negativemg/dL Urine Glucose (UA) >=1000mg/dL Urine Ketones (Stick) Tracemg/dL Urine Blood Negative Urine Nitrite Negative Urine Bilirubin Negative Urine Urobilinogen Dipstick 1.0mg/dL Urine Leukocyte Esterase Negative Urine RBC Rare/HPF Urine WBC 0/HPF Urine Squamous Epithelial Cells Occ/LPF Urine Bacteria 0/HPF Glucose (Fingerstick) 191mg/dL Test 10/08/16 03:30 10/08/16 04:00 White Blood Count 4.1x10^3/uL Red Blood Count 3.57x10^6/uL Hemoglobin 11.0g/dL Hematocrit 31.4% Mean Corpuscular Volume 88fL Mean Corpuscular Hemoglobin 31pg Mean Corpuscular Hemoglobin Concent 35g/dL Red Cell Distribution Width 14.5% Platelet Count 48x10^3/uL Neutrophils (%) (Auto) 65% Lymphocytes (%) (Auto) 24% Monocytes (%) (Auto) 10% Eosinophils (%) (Auto) 1% Basophils (%) (Auto) 0% Neutrophils # (Auto) 2.7x10^3uL Lymphocytes # (Auto) 1.0x10^3/uL Monocytes # (Auto) 0.4x10^3/uL Eosinophils # (Auto) 0.0x10^3/uL Basophils # (Auto) 0.0x10^3/uL Sodium Level 137mmol/L Potassium Level 4.0mmol/L Chloride Level 107mmol/L Carbon Dioxide Level 24mmol/L Anion Gap 6 Blood Urea Nitrogen 25mg/dL Creatinine 1.0mg/dL Estimated GFR (Cockcroft-Gault) 76.5 BUN/Creatinine Ratio 25 Glucose Level 184mg/dL Calcium Level 8.2mg/dL Total Bilirubin 1.6mg/dL Aspartate Amino Transf (AST/SGOT) 25U/L Alanine Aminotransferase (ALT/SGPT) 24U/L Alkaline Phosphatase 50U/L Total Protein 6.3g/dL Albumin 2.9g/dL Albumin/Globulin Ratio 0.9 Prothrombin Time 17.1SEC Prothromb Time International Ratio 1.5 Imaging: EGD 10/07/16 E--scarring distally from prior banding. NO varices. G-clots in body. No ulcer, etc. large gastric varix in cardia w/o active bleeding No others seen due to clots in the way. D-Normal to second portion. IMP: Gastric varices, likely source of recent bleeding and not amenable to endoscopic treatment here. Esophageal scarring from prior banding w/o residual varices. CT A/P w/o contrast 10/07/16 IMPRESSION 1. Findings consistent with cirrhosis of liver with splenomegaly and changes of portal hypertension with multiple gastric varices and varices in the upper abdomen about the stomach and spleen identified. 2. Multiple gallstones identified within the gallbladder. PE: GEN: NAD LUNGS: CTAB anteriorly HEART: RRR ABD: non-tender NEURO/PSYCH: A & O 3 A/P: Hematemesis - no recurrence -on PPI, octreotide Cirrhosis, splenomegaly, portal hypertension -h/o Hep C and liver cancer (says treated), h/o alcohol abuse (sober) -h/o esophageal varices (banded) -EGD yesterday as above w/ gastric varices, also CT -IR has reviewed, recommends transfer -- Continue same w/ possible transfer to . JOSELIN MCDONALD Oct 08, 2016 11:21
--- NOTE | 2016-10-08 12:14 | RAD ---
Limited abdominal Doppler History: Cirrhosis with GI bleeding. Evaluate portal and hepatic veins. Comparison: None. Technique: Grayscale, color Doppler, spectral Doppler imaging was performed of the hepatic and portal veins as well as splenic artery and vein. Findings: Chronic appearing liver is noted. Main main, right, and left portal veins demonstrate appropriate hepatopetal flow towards the liver. The right, left, and middle hepatic veins are patent and demonstrate appropriate hepatofugal flow away from the liver.. Splenic artery is patent. The splenic vein is patent and demonstrates appropriate hepatopetal flow towards the liver. Impression: Hepatic and portal veins are patent and demonstrate appropriate flow.
--- NOTE | 2016-10-08 13:56 | PDOC ---
PROGRESS NOTES Chief Complaint Chief Complaint cc: nausea, hematemesis x1 hepatic carcinoma with previous alcohol ablation therapy hepatic cirrhosis Hepatitis C genotype 2 treated with biologic. prior variceal bleeding with banding prior alcohol use hx of cocaine use diabetes mellitus currently incarcerated History of Present Illness History of Present Illness Patient seen and evaluated this morning. Patient resting in no apparent distress. He states no recurrence of the hematemesis and no episodes of abdominal pain. He reports having an appetite, requesting PO intake. d/w case with IR;With patient's pathology, a Balloon-occluded retrograde transvenous obliteration (BRTO) is recommended. To undergo the procedure, it is recommended the patient be transferred to . Vitals Vitals Vital Signs Date Time Temp Pulse Resp B/P Pulse Ox O2 Delivery O2 Flow Rate FiO2 10/08/16 12:00 98.4 80 19 102/60 97 Room Air 98.4 10/07/16 17:20 3 Physical Exam General: Alert, Oriented X3, Cooperative, No acute distress, Other (negative scleral icterus. negative jaundice. ) Heart: Regular rate, Normal S1, Normal S2 Lungs: Clear, Other (negative chest retractions and/or accessory muscle use. ) Abdomen: Normal bowel sounds, Soft, No tenderness, Other (distension. ) Extremities: No cyanosis, No edema Skin: No rashes, No significant lesion Labs LABS Laboratory Tests Test 10/07/16 14:10 10/07/16 16:44 10/07/16 17:40 10/08/16 03:30 Urine Collection Type Unknown Urine Color Yellow Urine Clarity Clear Urine pH 6.5 Urine Specific [place] >=1.030 Urine Protein Negativemg/dL (NEG-TRACE) Urine Glucose (UA) >=1000mg/dL (NEG) Urine Ketones (Stick) Tracemg/dL (NEG) Urine Blood Negative (NEG) Urine Nitrite Negative (NEG) Urine Bilirubin Negative (NEG) Urine Urobilinogen Dipstick 1.0mg/dL (0.2 mg/dL) Urine Leukocyte Esterase Negative (NEG) Urine RBC Rare/HPF (0-2) Urine WBC 0/HPF (0-4) Urine Squamous Epithelial Cells Occ/LPF Urine Bacteria 0/HPF (0-FEW) Glucose (Fingerstick) 191mg/dL (70-99) White Blood Count 6.3x10^3/uL (4.0-11.0) 4.1x10^3/uL (4.0-11.0) Red Blood Count 4.06x10^6/uL (4.30-5.70) 3.57x10^6/uL (4.30-5.70) Hemoglobin 12.5g/dL (13.0-17.5) 11.0g/dL (13.0-17.5) Hematocrit 35.3% (39.0-53.0) 31.4% (39.0-53.0) Mean Corpuscular Volume 87fL (79-100) 88fL (79-100) Mean Corpuscular Hemoglobin 31pg (25-35) 31pg (25-35) Mean Corpuscular Hemoglobin Concent 36g/dL (31-37) 35g/dL (31-37) Red Cell Distribution Width 14.4% (11.5-14.5) 14.5% (11.5-14.5) Platelet Count 61x10^3/uL (140-400) 48x10^3/uL (140-400) Neutrophils (%) (Auto) 65% (31-73) Lymphocytes (%) (Auto) 24% (24-48) Monocytes (%) (Auto) 10% (0-9) Eosinophils (%) (Auto) 1% (0-3) Basophils (%) (Auto) 0% (0-3) Neutrophils # (Auto) 2.7x10^3uL (1.8-7.7) Lymphocytes # (Auto) 1.0x10^3/uL (1.0-4.8) Monocytes # (Auto) 0.4x10^3/uL (0.0-1.1) Eosinophils # (Auto) 0.0x10^3/uL (0.0-0.7) Basophils # (Auto) 0.0x10^3/uL (0.0-0.2) Sodium Level 137mmol/L (136-145) Potassium Level 4.0mmol/L (3.5-5.1) Chloride Level 107mmol/L (98-107) Carbon Dioxide Level 24mmol/L (21-32) Anion Gap 6 (6-14) Blood Urea Nitrogen 25mg/dL (8-26) Creatinine 1.0mg/dL (0.7-1.3) Estimated GFR (Cockcroft-Gault) 76.5 BUN/Creatinine Ratio 25 (6-20) Glucose Level 184mg/dL (70-99) Calcium Level 8.2mg/dL (8.5-10.1) Total Bilirubin 1.6mg/dL (0.2-1.0) Aspartate Amino Transf (AST/SGOT) 25U/L (15-37) Alanine Aminotransferase (ALT/SGPT) 24U/L (16-63) Alkaline Phosphatase 50U/L (46-116) Total Protein 6.3g/dL (6.4-8.2) Albumin 2.9g/dL (3.4-5.0) Albumin/Globulin Ratio 0.9 (1.0-1.7) Test 10/08/16 04:00 10/08/16 10:00 Prothrombin Time 17.1SEC (11.7-14.0) Prothromb Time International Ratio 1.5 (0.8-1.1) White Blood Count 3.4x10^3/uL (4.0-11.0) Red Blood Count 3.48x10^6/uL (4.30-5.70) Hemoglobin 11.0g/dL (13.0-17.5) Hematocrit 30.1% (39.0-53.0) Mean Corpuscular Volume 87fL (79-100) Mean Corpuscular Hemoglobin 32pg (25-35) Mean Corpuscular Hemoglobin Concent 37g/dL (31-37) Red Cell Distribution Width 14.6% (11.5-14.5) Platelet Count 50x10^3/uL (140-400) Review of Systems Review of Systems (+) increased appetite Denies chest pain, palpitations, sob, abdominal pain, n/v/d, lightheadedness/ dizziness, headaches, or fever/chills. Assessment and Plan Assessmemt and Plan Problems Medical Problems: (1) GI bleed Status: Acute Assessment: 1.) upper GI bleed, most likely to variceal bleeding 2.) Cirrhosis 3.) hepatitis C 4.) hepatic carcinoma 5.) hx of alcohol and substance abuse 6.) cholelithiasis, asymptomatic. Plan: 1.) continue transfer coordination to for BTRO procedure 2.) continue octreotide and protonix gtt 3.) NPO 4.) monitor H&H, transfuse if Hgb <7 5.) appreciate subspecialty input. Problems: Comment Review of Relevant I have reviewed the following items perry (where applicable) has been applied. Labs Laboratory Tests Test 10/07/16 13:00 10/07/16 14:10 10/07/16 16:44 10/07/16 17:40 White Blood Count 6.1x10^3/uL (4.0-11.0) 6.3x10^3/uL (4.0-11.0) Red Blood Count 4.15x10^6/uL (4.30-5.70) 4.06x10^6/uL (4.30-5.70) Hemoglobin 12.7g/dL (13.0-17.5) 12.5g/dL (13.0-17.5) Hematocrit 36.7% (39.0-53.0) 35.3% (39.0-53.0) Mean Corpuscular Volume 89fL (79-100) 87fL (79-100) Mean Corpuscular Hemoglobin 31pg (25-35) 31pg (25-35) Mean Corpuscular Hemoglobin Concent 35g/dL (31-37) 36g/dL (31-37) Red Cell Distribution Width 14.4% (11.5-14.5) 14.4% (11.5-14.5) Platelet Count 68x10^3/uL (140-400) 61x10^3/uL (140-400) Neutrophils (%) (Auto) 85% (31-73) Lymphocytes (%) (Auto) 9% (24-48) Monocytes (%) (Auto) 6% (0-9) Eosinophils (%) (Auto) 0% (0-3) Basophils (%) (Auto) 0% (0-3) Neutrophils # (Auto) 5.2x10^3uL (1.8-7.7) Lymphocytes # (Auto) 0.5x10^3/uL (1.0-4.8) Monocytes # (Auto) 0.4x10^3/uL (0.0-1.1) Eosinophils # (Auto) 0.0x10^3/uL (0.0-0.7) Basophils # (Auto) 0.0x10^3/uL (0.0-0.2) Prothrombin Time 17.3SEC (11.7-14.0) Prothromb Time International Ratio 1.5 (0.8-1.1) Activated Partial Thromboplast Time 36SEC (24-38) Sodium Level 135mmol/L (136-145) Potassium Level 5.1mmol/L (3.5-5.1) Chloride Level 103mmol/L (98-107) Carbon Dioxide Level 26mmol/L (21-32) Anion Gap 6 (6-14) Blood Urea Nitrogen 27mg/dL (8-26) Creatinine 1.0mg/dL (0.7-1.3) Estimated GFR (Cockcroft-Gault) 76.5 Glucose Level 284mg/dL (70-99) Calcium Level 8.4mg/dL (8.5-10.1) Total Bilirubin 2.4mg/dL (0.2-1.0) Direct Bilirubin 0.5mg/dL (0.0-0.2) Aspartate Amino Transf (AST/SGOT) 29U/L (15-37) Alanine Aminotransferase (ALT/SGPT) 28U/L (16-63) Alkaline Phosphatase 61U/L (46-116) Creatine Kinase 200U/L (39-308) Creatine Kinase MB (Mass) 1.6ng/mL (0.0-3.6) Creatine Kinase MB Relative Index 0.8% (0-4) Troponin I Quantitative < 0.017ng/mL (0.000-0.055) Total Protein 7.0g/dL (6.4-8.2) Albumin 3.4g/dL (3.4-5.0) Urine Collection Type Unknown Urine Color Yellow Urine Clarity Clear Urine pH 6.5 Urine Specific [place] >=1.030 Urine Protein Negativemg/dL (NEG-TRACE) Urine Glucose (UA) >=1000mg/dL (NEG) Urine Ketones (Stick) Tracemg/dL (NEG) Urine Blood Negative (NEG) Urine Nitrite Negative (NEG) Urine Bilirubin Negative (NEG) Urine Urobilinogen Dipstick 1.0mg/dL (0.2 mg/dL) Urine Leukocyte Esterase Negative (NEG) Urine RBC Rare/HPF (0-2) Urine WBC 0/HPF (0-4) Urine Squamous Epithelial Cells Occ/LPF Urine Bacteria 0/HPF (0-FEW) Glucose (Fingerstick) 191mg/dL (70-99) Test 10/08/16 03:30 10/08/16 04:00 10/08/16 10:00 White Blood Count 4.1x10^3/uL (4.0-11.0) 3.4x10^3/uL (4.0-11.0) Red Blood Count 3.57x10^6/uL (4.30-5.70) 3.48x10^6/uL (4.30-5.70) Hemoglobin 11.0g/dL (13.0-17.5) 11.0g/dL (13.0-17.5) Hematocrit 31.4% (39.0-53.0) 30.1% (39.0-53.0) Mean Corpuscular Volume 88fL (79-100) 87fL (79-100) Mean Corpuscular Hemoglobin 31pg (25-35) 32pg (25-35) Mean Corpuscular Hemoglobin Concent 35g/dL (31-37) 37g/dL (31-37) Red Cell Distribution Width 14.5% (11.5-14.5) 14.6% (11.5-14.5) Platelet Count 48x10^3/uL (140-400) 50x10^3/uL (140-400) Neutrophils (%) (Auto) 65% (31-73) Lymphocytes (%) (Auto) 24% (24-48) Monocytes (%) (Auto) 10% (0-9) Eosinophils (%) (Auto) 1% (0-3) Basophils (%) (Auto) 0% (0-3) Neutrophils # (Auto) 2.7x10^3uL (1.8-7.7) Lymphocytes # (Auto) 1.0x10^3/uL (1.0-4.8) Monocytes # (Auto) 0.4x10^3/uL (0.0-1.1) Eosinophils # (Auto) 0.0x10^3/uL (0.0-0.7) Basophils # (Auto) 0.0x10^3/uL (0.0-0.2) Sodium Level 137mmol/L (136-145) Potassium Level 4.0mmol/L (3.5-5.1) Chloride Level 107mmol/L (98-107) Carbon Dioxide Level 24mmol/L (21-32) Anion Gap 6 (6-14) Blood Urea Nitrogen 25mg/dL (8-26) Creatinine 1.0mg/dL (0.7-1.3) Estimated GFR (Cockcroft-Gault) 76.5 BUN/Creatinine Ratio 25 (6-20) Glucose Level 184mg/dL (70-99) Calcium Level 8.2mg/dL (8.5-10.1) Total Bilirubin 1.6mg/dL (0.2-1.0) Aspartate Amino Transf (AST/SGOT) 25U/L (15-37) Alanine Aminotransferase (ALT/SGPT) 24U/L (16-63) Alkaline Phosphatase 50U/L (46-116) Total Protein 6.3g/dL (6.4-8.2) Albumin 2.9g/dL (3.4-5.0) Albumin/Globulin Ratio 0.9 (1.0-1.7) Prothrombin Time 17.1SEC (11.7-14.0) Prothromb Time International Ratio 1.5 (0.8-1.1) Laboratory Tests Test 10/07/16 14:10 10/07/16 16:44 10/07/16 17:40 10/08/16 03:30 Urine Collection Type Unknown Urine Color Yellow Urine Clarity Clear Urine pH 6.5 Urine Specific [place] >=1.030 Urine Protein Negativemg/dL (NEG-TRACE) Urine Glucose (UA) >=1000mg/dL (NEG) Urine Ketones (Stick) Tracemg/dL (NEG) Urine Blood Negative (NEG) Urine Nitrite Negative (NEG) Urine Bilirubin Negative (NEG) Urine Urobilinogen Dipstick 1.0mg/dL (0.2 mg/dL) Urine Leukocyte Esterase Negative (NEG) Urine RBC Rare/HPF (0-2) Urine WBC 0/HPF (0-4) Urine Squamous Epithelial Cells Occ/LPF Urine Bacteria 0/HPF (0-FEW) Glucose (Fingerstick) 191mg/dL (70-99) White Blood Count 6.3x10^3/uL (4.0-11.0) 4.1x10^3/uL (4.0-11.0) Red Blood Count 4.06x10^6/uL (4.30-5.70) 3.57x10^6/uL (4.30-5.70) Hemoglobin 12.5g/dL (13.0-17.5) 11.0g/dL (13.0-17.5) Hematocrit 35.3% (39.0-53.0) 31.4% (39.0-53.0) Mean Corpuscular Volume 87fL (79-100) 88fL (79-100) Mean Corpuscular Hemoglobin 31pg (25-35) 31pg (25-35) Mean Corpuscular Hemoglobin Concent 36g/dL (31-37) 35g/dL (31-37) Red Cell Distribution Width 14.4% (11.5-14.5) 14.5% (11.5-14.5) Platelet Count 61x10^3/uL (140-400) 48x10^3/uL (140-400) Neutrophils (%) (Auto) 65% (31-73) Lymphocytes (%) (Auto) 24% (24-48) Monocytes (%) (Auto) 10% (0-9) Eosinophils (%) (Auto) 1% (0-3) Basophils (%) (Auto) 0% (0-3) Neutrophils # (Auto) 2.7x10^3uL (1.8-7.7) Lymphocytes # (Auto) 1.0x10^3/uL (1.0-4.8) Monocytes # (Auto) 0.4x10^3/uL (0.0-1.1) Eosinophils # (Auto) 0.0x10^3/uL (0.0-0.7) Basophils # (Auto) 0.0x10^3/uL (0.0-0.2) Sodium Level 137mmol/L (136-145) Potassium Level 4.0mmol/L (3.5-5.1) Chloride Level 107mmol/L (98-107) Carbon Dioxide Level 24mmol/L (21-32) Anion Gap 6 (6-14) Blood Urea Nitrogen 25mg/dL (8-26) Creatinine 1.0mg/dL (0.7-1.3) Estimated GFR (Cockcroft-Gault) 76.5 BUN/Creatinine Ratio 25 (6-20) Glucose Level 184mg/dL (70-99) Calcium Level 8.2mg/dL (8.5-10.1) Total Bilirubin 1.6mg/dL (0.2-1.0) Aspartate Amino Transf (AST/SGOT) 25U/L (15-37) Alanine Aminotransferase (ALT/SGPT) 24U/L (16-63) Alkaline Phosphatase 50U/L (46-116) Total Protein 6.3g/dL (6.4-8.2) Albumin 2.9g/dL (3.4-5.0) Albumin/Globulin Ratio 0.9 (1.0-1.7) Test 10/08/16 04:00 10/08/16 10:00 Prothrombin Time 17.1SEC (11.7-14.0) Prothromb Time International Ratio 1.5 (0.8-1.1) White Blood Count 3.4x10^3/uL (4.0-11.0) Red Blood Count 3.48x10^6/uL (4.30-5.70) Hemoglobin 11.0g/dL (13.0-17.5) Hematocrit 30.1% (39.0-53.0) Mean Corpuscular Volume 87fL (79-100) Mean Corpuscular Hemoglobin 32pg (25-35) Mean Corpuscular Hemoglobin Concent 37g/dL (31-37) Red Cell Distribution Width 14.6% (11.5-14.5) Platelet Count 50x10^3/uL (140-400) Medications Current Medications Ondansetron HCl (Zofran) 4 mg 1X ONCE IV Last administered on 10/07/16t 13:14 ; Start 10/07/16 at 13:00; Stop 10/07/16 at 13:01; Status DC Ondansetron HCl 4 mg 4 mg PRN Q8HRS PRN IV NAUSEA/VOMITING; Start 10/07/16 at 14:30; Stop 10/08/16 at 14:29 Phytonadione/ Sodium Chloride (Vitamin K/Iv Sodium Chloride 0.9% 50ml) 51 ml @ 102 mls/hr 1X ONCE IV Last administered on 10/07/16 15:42; Start 10/07/16 at 15:15; Stop 10/07/16 at 15:44; Status DC Pantoprazole Sodium 40 mg 40 mg 1X ONCE IVP Last administered on 10/07/16 15: 26; Start 10/07/16 at 15:15; Stop 10/07/16 at 15:16; Status DC Octreotide Acetate 500 mcg/ Sodium Chloride 101 ml @ 10 mls/hr CONT PRN IV SEE I/O RECORD Last administered on 10/08/16 03:19; Start 10/07/16 at 15:15 Propofol (Diprivan) 40 ml @ As Directed STK-MED ONCE IV ; Start 10/07/16 at 16: 58; Stop 10/07/16 at 16:59; Status DC Lidocaine HCl (Lidocaine Pf 2% Vial) 5 ml STK-MED ONCE .ROUTE ; Start 10/07/16 at 16:58; Stop 10/07/16 at 16:59; Status DC Pantoprazole Sodium (Protonix Vial) 40 mg [id number] IVP Last administered on 05:27; Start 10/07/16 at 18:00 Active Scripts Active No Active Prescriptions or Reported Medications Vitals/I & O Vital Sign - Last 24 Hours 10/07/16 10/07/16 10/07/16 10/07/16 14:14 14:44 15:14 15:44 Pulse 94 88 90 Resp 20 20 B/P 130/73 145/79 134/68 127/67 Pulse Ox 96 95 95 O2 Delivery Room Air Room Air Room Air Room Air 10/07/16 10/07/16 10/07/16 10/07/16 16:15 17:10 17:20 17:30 Temp 97.9 98.2 98.2 97.9 98.2 98.2 Pulse 91 97 87 84 Resp 18 20 20 20 B/P 145/74 121/73 120/69 Pulse Ox 96 98 98 98 O2 Delivery Room Air Nasal Cannula Nasal Cannula Room Air O2 Flow Rate 3 3 10/07/16 10/07/16 10/07/16 10/07/16 17:38 20:30 20:30 20:45 Temp 99.1 99.1 Pulse 86 90 86 Resp 20 16 18 B/P 124/70 140/71 140/69 Pulse Ox 97 99 99 O2 Delivery Room Air Room Air Room Air 10/07/16 10/07/16 10/07/16 10/07/16 21:00 21:15 21:30 22:00 Pulse 80 80 80 86 Resp 15 20 B/P 133/72 139/70 140/65 136/67 Pulse Ox 99 99 98 97 O2 Delivery Room Air Room Air Room Air Room Air 10/07/16 10/08/16 10/08/16 10/08/16 23:00 00:00 00:00 01:00 Temp 99.0 99.0 Pulse 83 91 86 Resp 19 B/P 117/62 123/63 121/67 Pulse Ox 97 98 95 O2 Delivery Room Air Room Air Room Air Room Air 10/08/16 10/08/16 10/08/16 10/08/16 02:00 03:00 04:00 04:00 Temp 98.5 98.5 Pulse 89 76 76 Resp 18 16 B/P 118/62 122/63 103/62 Pulse Ox 96 96 92 O2 Delivery Room Air Room Air Room Air Room Air 10/08/16 10/08/16 10/08/16 10/08/16 05:00 06:00 07:00 08:00 Temp 98.5 98.5 Pulse 73 82 74 72 Resp 17 B/P 111/62 118/57 118/58 105/59 Pulse Ox 95 95 94 95 O2 Delivery Room Air Room Air Room Air Room Air 10/08/16 10/08/16 10/08/16 10/08/16 09:00 10:00 11:00 12:00 Temp 98.4 98.4 Pulse 68 72 68 80 Resp 16 19 B/P 105/59 122/66 104/57 102/60 Pulse Ox 95 95 95 97 O2 Delivery Room Air Room Air Room Air Room Air Intake and Output 10/07/16 10/07/16 10/08/16 15:00 23:00 07:00 Intake Total 0 ml 85 ml Output Total 675 ml Balance 0 ml -590 ml Nutrition Consultation Dietary Evaluation: Recommendations by RD: Increase Calorie Intake Comments: Rec. advance to a cardiac, low fiber diet (d/t hx of esophageal varicies) when medically appropriate Expected Outcomes/Goals: diet advancement meet 75% estimated nutrition needs Malnutrition Findings: Weight Status: Obese TANISHA LEI III DO Oct 08, 2016 13:56
--- NOTE | 2016-10-15 21:47 | DS ---
DATE OF DISCHARGE: 10/08/2016 ADMISSION DIAGNOSIS: Gastrointestinal bleed. DISCHARGE DIAGNOSIS: ____ despite acute gastrointestinal bleed, probably secondary to gastric varices. HOSPITAL COURSE: The patient is a pleasant 61-year-old male presented with a GI bleed. We consulted GI, General Surgery and Interventional Radiology. All 3 were not able to help to this gentleman, because the varicose vein in his stomach, was quite large. We transferred him to for a BRTO procedure. Those are okay for BRTO. DISPOSITION: . ACTIVITY: As tolerated. DIET: N.p.o. MEDICATIONS: Please see the MRAD. TOTAL TIME ON DISCHARGE: 36 minutes. TANISHA LEI DO DR: RUSSELL/irma JOB#: [id number] / [id number]
== END 2016-10-08 15:45 | disposition short-term general hospital (02) | DRG 300 ==
LOC: ER 12:10 → EEVIPCON 12:10 → 4 NORTH 14:20 → OBSVTOIN 14:20 → 1 WEST ICU 18:10
PROVIDERS: ADMIT Internal Medicine Hematology & Oncology; ATTEND Internal Medicine Hematology & Oncology
PROC: 0DJ08ZZ Inspection of Upper Intestinal Tract, Via Natural or Artificial Opening Endoscopic (ICD-10-PCS; principal; 2016-10-07 17:00)
DX: I86.4 Gastric varices (principal); D62 Acute posthemorrhagic anemia; K76.6 Portal hypertension; K92.0 Hematemesis; K22.2 Esophageal obstruction; B19.20 Unspecified viral hepatitis C without hepatic coma; E11.9 Type 2 diabetes mellitus without complications; K74.60 Unspecified cirrhosis of liver; K80.20 Calculus of gallbladder without cholecystitis without obstruction; F14.90 Cocaine use, unspecified, uncomplicated; Z72.0 Tobacco use; Z85.05 Personal history of malignant neoplasm of liver
CPT/HCPCS: 36415; 74022; 74176; 80048; 80053; 80076; 81001; 82553; 82947; 84484; 85027; 85610; 85730; 86850; 86900; 86901; 87641; 93005; 93976; 96365; 96375; C9113; J2354; J2405; J2704; J3430; 99285-25

== ENCOUNTER 2018-08-31 03:36 | Inpatient (IN) | payer OTHER ==
[~2018-08-31] VITALS: Ht 172.7 cm; Wt 99.8 kg
--- NOTE | 2018-08-31 03:58 | PHYS DOC ---
Past Medical History Past Medical History: Anemia, Liver Disease Additional Past Medical Histor: HEP C,LIVER CANCER,CANCER REMOVED, Past Surgical History: No Surgical History, Other Additional Past Surgical Histo: VARICES BANDED Alcohol Use: Heavy Drug Use: Cocaine, Marijuana Adult General Chief Complaint Chief Complaint: ABDOMINAL PAIN HPI HPI Patient is a 65-year-old male who presents via EMS with reports that he woke up this morning with his abdomen very distended. He states that he has been nauseated but denies having had any vomiting. He states he has a history of esophageal varices and states that the onset of symptoms this time is very similar to when he had varices that had ruptured previously but states that he has not yet vomited. He denies any abdominal pain but states that he feels pressure in his abdomen and it feels very distended. He denies any chest pain or shortness of breath. Review of Systems Review of Systems Constitutional: Denies fever or chills [] Respiratory: Denies cough or shortness of breath [] Cardiovascular: No additional information not addressed in HPI [] GI: Complains of abdominal distention with nausea. Denies vomiting or diarrhea [ ] Neurologic: Denies headache, focal weakness or sensory changes [] All other systems were reviewed and found to be within normal limits, except as documented in this note. Current Medications Current Medications Current Medications Medications (Trade) Dose Ordered Sig/Venita Start Time Stop Time Status Last Admin Dose Admin Info (CONTRAST GIVEN -- Rx MONITORING) 1 each PRN DAILY PRN 08/31/18 05:30 09/02/18 05:29 Iohexol (Omnipaque 300 Mg/ml) 75 ml 1X ONCE 08/31/18 05:00 08/31/18 05:26 DC 08/31/18 05:16 75 ML Allergies Allergies Allergies Coded Allergies Type Severity Reaction Last Updated Verified No Known Drug Allergies 10/07/16 No Physical Exam Physical Exam Constitutional: Well developed, well nourished, no acute distress, non-toxic appearance. [] HENT: Normocephalic, atraumatic, bilateral external ears normal, oropharynx moist, no oral exudates, nose normal. [] Eyes: PERRLA, EOMI, conjunctiva normal, no discharge. [] Neck: Normal range of motion, no tenderness, supple, no stridor. [] Cardiovascular: Regular rate and rhythm[] Lungs & Thorax: Bilateral breath sounds clear to auscultation [] Abdomen: Bowel sounds normal, distended, nontender. [] Skin: Warm, dry, no erythema, no rash. [] Back: No tenderness, no CVA tenderness. [] Extremities: No tenderness, no cyanosis, no clubbing, ROM intact, no edema. [] Neurologic: Alert and oriented X 3, normal motor function, normal sensory function, no focal deficits noted. [] Psychologic: Affect normal, judgement normal, mood normal. [] Current Patient Data Vital Signs Vital Signs Date Time Temp Pulse Resp B/P (MAP) Pulse Ox O2 Delivery O2 Flow Rate FiO2 08/31/18 03:36 98.3 88 18 141/73 (95) 99 Room Air 98.3 Lab Values Laboratory Tests Test 08/31/18 04:15 White Blood Count 1.5 x10^3/uL (4.0-11.0) *L Red Blood Count 3.58 x10^6/uL (4.30-5.70) L Hemoglobin 7.9 g/dL (13.0-17.5) L Hematocrit 26.0 % (39.0-53.0) L Mean Corpuscular Volume 72 fL (79-100) L Mean Corpuscular Hemoglobin 22 pg (25-35) L Mean Corpuscular Hemoglobin Concent 30 g/dL (31-37) L Red Cell Distribution Width 19.0 % (11.5-14.5) H Platelet Count 37 x10^3/uL (140-400) L Neutrophils (%) (Auto) 71 % (31-73) Lymphocytes (%) (Auto) 19 % (24-48) L Monocytes (%) (Auto) 9 % (0-9) Eosinophils (%) (Auto) 1 % (0-3) Basophils (%) (Auto) 0 % (0-3) Neutrophils # (Auto) 1.0 x10^3uL (1.8-7.7) L Lymphocytes # (Auto) 0.3 x10^3/uL (1.0-4.8) L Monocytes # (Auto) 0.1 x10^3/uL (0.0-1.1) Eosinophils # (Auto) 0.0 x10^3/uL (0.0-0.7) Basophils # (Auto) 0.0 x10^3/uL (0.0-0.2) Segmented Neutrophils % 75 % (35-66) H Lymphocytes % 17 % (24-48) L Monocytes % 6 % (0-10) Eosinophils % 1 % (0-5) Basophils % 1 % (0-3) Platelet Estimate Decreased (ADEQUATE) Hypochromasia Mod Poikilocytosis Slight Anisocytosis Slight Microcytosis Slight Ovalocytes Few Schistocytes Occ Prothrombin Time 17.8 SEC (11.7-14.0) H Prothrombin Time INR 1.5 (0.8-1.1) H PTT 42 SEC (24-38) H Sodium Level 139 mmol/L (136-145) Potassium Level 3.9 mmol/L (3.5-5.1) Chloride Level 105 mmol/L (98-107) Carbon Dioxide Level 25 mmol/L (21-32) Anion Gap 9 (6-14) Blood Urea Nitrogen 7 mg/dL (8-26) L Creatinine 0.8 mg/dL (0.7-1.3) Estimated GFR (Cockcroft-Gault) 97.6 BUN/Creatinine Ratio 9 (6-20) Glucose Level 225 mg/dL (70-99) H Calcium Level 8.1 mg/dL (8.5-10.1) L Total Bilirubin 0.7 mg/dL (0.2-1.0) Aspartate Amino Transferase (AST) 25 U/L (15-37) Alanine Aminotransferase (ALT) 20 U/L (16-63) Alkaline Phosphatase 87 U/L (46-116) Total Protein 7.1 g/dL (6.4-8.2) Albumin 2.8 g/dL (3.4-5.0) L Albumin/Globulin Ratio 0.7 (1.0-1.7) L Lipase 436 U/L (73-393) H Laboratory Tests 08/31/18 04:15 Laboratory Tests 08/31/18 04:15 EKG EKG [] Radiology/Procedures Radiology/Procedures [] Course & Med Decision Making Course & Med Decision Making Pertinent Labs and Imaging studies reviewed. (See chart for details) [] Dragon Disclaimer Dragon Disclaimer This electronic medical record was generated, in whole or in part, using a voice recognition dictation system. Departure Departure Impression: Primary Impression: Pancytopenia Disposition: 09 ADMITTED INPATIENT Admitting Physician: Maria Guadalupe Manrique Condition: IMPROVED Referrals: NO PCP (PCP) Scripts No Active Prescriptions or Reported Meds RICHI URRUTIA Jr., DO Aug 31, 2018 03:58
[2018-08-31 04:28] LABS: BASO % 0 % (0-3); EOS % 1 % (0-3); HEMOGLOBIN 7.9 g/dL (13.0-17.5); LYMPH # 0.3 x10^3/uL (1.0-4.8); LYMPH % 19 % (24-48); MEAN CORPUSCULAR HEMOGLOBIN 22 pg (25-35); MEAN CORPUSCULAR HGB CONC 30 g/dL (31-37); MEAN CORPUSCULAR VOLUME 72 fL (79-100); MONO # 0.1 x10^3/uL (0.0-1.1); MONO % 9 % (0-9); NEUT % 71 % (31-73); PLATELET COUNT 37 x10^3/uL (140-400); RED BLOOD COUNT 3.58 x10^6/uL (4.30-5.70)
[2018-08-31 04:34] LABS: CALCIUM 8.1 mg/dL (8.5-10.1); CREATININE 0.8 mg/dL (0.7-1.3); GFR 97.6; POTASSIUM 3.9 mmol/L (3.5-5.1)
[2018-08-31 04:39] LABS: WHITE BLOOD COUNT 1.5 x10^3/uL (4.0-11.0)
[2018-08-31 04:40] LABS: ALBUMIN 2.8 g/dL (3.4-5.0); ALBUMIN/GLOBULIN RATIO 0.7 (1.0-1.7); TOTAL BILIRUBIN 0.7 mg/dL (0.2-1.0); TOTAL PROTEIN 7.1 g/dL (6.4-8.2)
[2018-08-31 04:46] LABS: PROTHROMBIN TIME PATIENT 17.8 SEC (11.7-14.0)
[2018-08-31] MEDS ORDERED: IOHEXOL 300 MG/ML 100ML VIAL. IV ONE (05:00)
[2018-08-31 05:14] LABS: % BASOS 1 % (0-3); % EOS 1 % (0-5); % LYMPHS 17 % (24-48); % MONOS 6 % (0-10); % SEGS 75 % (35-66); ANISOCYTOSIS SLIGHT; HYPOCHROMIA MOD; MICROCYTOSIS SLIGHT; OVALOCYTES FEW; PLT ESTIMATE DECREASED (ADEQUATE); POIKILOCYTOSIS SLIGHT; SCHISTOCYTES OCC
[2018-08-31] MEDS ORDERED: CONTRAST GIVEN. MC PRN (05:30)
[2018-08-31] MEDS ORDERED: ONDANSETRON PF 4 MG/2 ML VIAL. IV PRN (06:00)
[2018-08-31] MEDS ORDERED: fentaNYL PF VIAL 100 MCG/2 ML VIAL IV PRN (06:00)
--- NOTE | 2018-08-31 06:10 | RAD ---
INDICATION: bloating; abd pain; Omni 300, 75ml COMPARISON: September 2016 TECHNIQUE: Axial CT images obtained through the abdomen and pelvis with contrast. One or more of the following individualized dose reduction techniques were utilized for this examination: 1. Automated exposure control; 2. Adjustment of the mA and/or kV according to patient size; 3. Use of iterative reconstruction technique. FINDINGS: Large amount of enhancing structure surrounding the stomach and distal esophagus with a tubular appearance which could be from varices. Calcific atherosclerosis. Left greater than right fat-containing inguinal hernia. Cirrhotic liver morphology. Small amount of free fluid. Gallstones. Suspected low-density lesion at right lobe the liver posteriorly measuring at least 23 mm. Additional suspected liver lesion near the dome within the right lobe measuring up to about 27 mm. There is some haziness to the fat within the abdomen and pelvis. No peripancreatic fluid collection. The spleen is enlarged. Enlargement of portal vein. Multiple collateral vessels seen in the upper abdomen. No left-sided hydronephrosis. Urinary bladder is partially distended. The appendix does not appear dilated. Umbilical hernia suspected with some fat as well as vessels within as well as some edema. Suspected filling defect in a portion of the portal vein. Haziness to the fat adjacent to the duodenum. Enlarged lymph node in the upper abdomen portacaval region measuring up to about 14 mm short axis. Tubular low-density structure left lobe the liver. Degenerative changes throughout the spine with multilevel central canal and neural foraminal stenosis. Right lower rib fracture with some callus formation. Grade 1 anterolisthesis of L4 on 5. IMPRESSION: 1. Repeat demonstration of cirrhotic liver morphology with enlarged portal vein and splenomegaly which can be seen with cirrhosis with portal hypertension. 2. Filling defect is seen within the main portal vein as well as a low-density tubular structure within the left lobe the liver which could be secondary to thrombus within the left portal vein and main portal vein. 3. There is a couple of suspected low-density lesions within the liver. Would obtain a follow-up liver protocol CT or MRI to further evaluate given the patient's history of cirrhosis malignant neoplastic causes are within the differential but these have a nonspecific appearance on this exam. 4. Gallstones. 5. There is some edema seen throughout the abdomen and pelvis including adjacent to the duodenum. Could be related to the diffuse process but inflammation to the duodenum not excluded given the edema in the region. 6. Gastroesophageal varices, severe. 7. There are some enlarged lymph nodes in the upper abdomen. Could be reactive in nature but neoplastic causes are not excluded. Electronically signed by: Robert Encinas MD (08/31/2018 6:06 AM) [facility]
--- NOTE | 2018-08-31 06:59 | EKG ---
[facility] [address] [place] [address] Test Date: 2018-08-31 Test Time: 04:13:18 Pat Name: ROSEANNA ZHOU Department: Room: 521 1 Gender: M Pond Scaler: : 1953-05-09 Requested By: RICHI URRUTIA Order Number: [id number] Reading MD: Umer Mera MD Measurements Intervals Freeman Rate: 87 P: 41 TN: 192 QRS: -18 QRSD: 90 T: 11 QT: 394 QTc: 475 Interpretive Statements SINUS RHYTHM 1ST DEGREE AVB PRIOR INFERIOR INFARCT POSSIBLE Electronically Signed On 09-01-2018 16:38:29 CDT by Umer Mera MD
[2018-08-31 07:15] VITALS: BP 133/80
--- NOTE | 2018-08-31 07:26 | NUR ---
Pt arrived from ED per cart at 0710,positioned for comfort tele placed. No c/o discomfort at this time.Pt with 2 guards and shackles to right wrist and left ankle.
[2018-08-31] MEDS ORDERED: TAMS0.4C97 PO (07:58)
[2018-08-31] MEDS ORDERED: INSU100I13 SQ (07:58)
[2018-08-31] MEDS ORDERED: METF10007 PO (07:58)
[2018-08-31] MEDS ORDERED: ATOR10TA60 PO (07:58)
[2018-08-31] MEDS: IV NORMAL SALINE 1000ML BAG 1,000 ML IV SCH ×2 (08:21→17:44)
--- NOTE | 2018-08-31 10:42 | HP ---
ADMIT DATE: 08/31/2018 CHIEF COMPLAINT: Abdominal pain and distention. HISTORY OF PRESENT ILLNESS: The patient is a pleasant 65-year-old male who has apparently been in and out of [facility], and currently, he is in shelter for a parole violation. He has been in for 5 weeks. Normally, he drinks quite heavily. He drinks whiskey and high alcohol content beer. He states he knows he has had liver problems and in fact he was admitted before couple of years ago with portal hypertension with esophageal varices. This time, he has got abdominal distention with some pain rated at 7/10, worse with food. When we checked his labs, he has pancytopenia and an elevated INR. I have discussed the case with the ER physician. We are going to admit the patient and consult GI and Heme/Onc. PAST MEDICAL HISTORY: Alcoholism, hepatitis C, liver cancer, esophageal varices, cocaine use, marijuana use, alcohol use. ALLERGIES: None. FAMILY HISTORY: Alcohol use. SOCIAL HISTORY: He is in [facility]. He normally drinks whiskey, beer, smokes marijuana and apparently does cocaine. MEDICATIONS: Reviewed. He is on Flomax, atorvastatin, metformin and Lantus. REVIEW OF SYSTEMS: GENERAL: No history of weight change, weakness or fevers. SKIN: No bruising, hair changes or rashes. EYES: No blurred, double or loss of vision. NOSE AND THROAT: No history of nosebleeds, hoarseness or sore throat. HEART: No history of palpitations, chest pain or shortness of breath on exertion. LUNGS: Denies cough, hemoptysis, wheezing or shortness of breath. GASTROINTESTINAL: He complains of abdominal pain. GENITOURINARY: No history of frequency, urgency, hesitancy or nocturia. NEUROLOGIC: Denies history of numbness, tingling, tremor or weakness. PSYCHIATRIC: No history of panic, anxiety or depression. ENDOCRINE: No history of heat or cold intolerance, polyuria or polydipsia. EXTREMITIES: Denies muscle weakness, joint pain, pain on walking or stiffness. PHYSICAL EXAMINATION: VITAL SIGNS: Temperature afebrile, pulse 98, respirations 18, blood pressure 141/73. GENERAL: He is alert, cooperative. Two security officers present. He is shackled. HEART: Normal S1, S2. LUNGS: Clear. ABDOMEN: Soft and distended. EXTREMITIES: Trace edema. SKIN: No rashes, but he does have tattoos on his belly. ENDOCRINE: No thyromegaly. LYMPHATICS: No cervical nodes. HEMATOPOIETIC: No bruising. PSYCHIATRIC: He is stable. LABORATORY DATA: White count 1.5, hemoglobin 7.9, platelets 37. Electrolytes are normal. Transaminases are normal, but his INR is high at 1.5. ASSESSMENT AND PLAN: Pancytopenia, coagulopathy, alcoholism in a middle-aged male who has multiple comorbidities including apparent history of liver cancer, suspect he could have metastatic disease or perhaps his bone marrow is just suppressed from all the alcohol. For now, we are going to consult Hematology/Oncology and GI. IV fluids, clear liquids. Deep venous thrombosis prophylaxis. Full code. Resume his previous home meds, p.r.n. Zofran, p.r.n. fentanyl. PROGNOSIS: Guarded. TANISHA LEI DO DR: RUSSELL/irma JOB#: [id number] / [id number]
[2018-08-31 11:05] VITALS: BP 127/68
--- NOTE | 2018-08-31 13:36 | PDOC2 ---
GI CONSULT Reason For Consult: Esophageal varices, liver lesions HPI: HPI: 65 y/o inmate who we saw in 09/2016 for hematemesis. H/o cirrhosis/portal hypertension and gastroesophageal varices. H/o Hep C, alcohol abuse, and liver cancer - previously reported treatment at [facility] in [place]. At that time, EGD showed scarring in distal esophagus from prior banding (but no varices), large gastric varix in cardia (no active bleeding but clots in gastric body), and normal duodenum. Per IR recommendation, was transferred to - discussion in chart re: TIPS, glue injection for gastric varices, and BRTO. He says he went to and "got a stent." Since then, he reports EGD w/ banding a couple times at [facility] - thinks last ~6-8 months ago. Since we have seen him, was released from correctional facility but recently re- incarcerated for violating probation (says related to alcohol use). On this occasion, he was brought to the ER after waking around 1:00 a.m. with a full and hard feeling in his abdomen. Though he denies bleeding (hematemesis, hematochezia, melena), this feeling was similar to past episodes of bleeding. Abdomen feels normal currently. No heartburn/reflux, dysphagia, vomiting, diarrhea, constipation, weight loss, or change in appetite. Had some nausea this morning that has resolved. Last stooled yesterday - small and normal in color. Colonoscopy years ago, reportedly normal. No GB or pancreas history. No ASA or NSAIDs. Before I saw him, RN called asking if he could eat. He also told me he'd really like to eat. Significant labs: WBC 1.5, Hgb 7.9, MCV 72, plt 37, INR 1.5, BUN 7, albumin 2.8/ 0.7, lipase 436. Abnormalities on CT as below. PMH: PMH: Hep C, liver cancer, cirrhosis, esophageal and gastric varices, DM, HLD, BPH, cataracts, cholelithiasis FH: Family History: No pertinent hx (denies GI cancers) Social History: Smoke: Quit ALCOHOL: other (heavy use in the past, then sober, recently started drinking again) Drugs: Cocaine (past) ROS: GEN: Denies fevers, chills, sweats HEENT: Denies blurred vision, sore throat CV: Denies chest pain RESP: Denies shortness of air, cough GI: Per HPI : Denies hematuria, dysuria ENDO: Denies weight changes NEURO: Denies confusion, dizziness MSK: Denies weakness, joint pain/swelling SKIN: Denies jaundice, pruritus Vitals: Vitals: Vital Signs Date Time Temp Pulse Resp B/P (MAP) Pulse Ox O2 Delivery O2 Flow Rate FiO2 08/31/18 11:05 98.2 88 18 127/68 (87) 96 Room Air 98.2 Labs: Labs: Laboratory Tests Test 08/31/18 04:15 08/31/18 07:40 08/31/18 11:10 White Blood Count 1.5 x10^3/uL (4.0-11.0) Red Blood Count 3.58 x10^6/uL (4.30-5.70) Hemoglobin 7.9 g/dL (13.0-17.5) Hematocrit 26.0 % (39.0-53.0) Mean Corpuscular Volume 72 fL (79-100) Mean Corpuscular Hemoglobin 22 pg (25-35) Mean Corpuscular Hemoglobin Concent 30 g/dL (31-37) Red Cell Distribution Width 19.0 % (11.5-14.5) Platelet Count 37 x10^3/uL (140-400) Neutrophils (%) (Auto) 71 % (31-73) Lymphocytes (%) (Auto) 19 % (24-48) Monocytes (%) (Auto) 9 % (0-9) Eosinophils (%) (Auto) 1 % (0-3) Basophils (%) (Auto) 0 % (0-3) Neutrophils # (Auto) 1.0 x10^3uL (1.8-7.7) Lymphocytes # (Auto) 0.3 x10^3/uL (1.0-4.8) Monocytes # (Auto) 0.1 x10^3/uL (0.0-1.1) Eosinophils # (Auto) 0.0 x10^3/uL (0.0-0.7) Basophils # (Auto) 0.0 x10^3/uL (0.0-0.2) Segmented Neutrophils % 75 % (35-66) Lymphocytes % 17 % (24-48) Monocytes % 6 % (0-10) Eosinophils % 1 % (0-5) Basophils % 1 % (0-3) Platelet Estimate Decreased (ADEQUATE) Hypochromasia Mod Poikilocytosis Slight Anisocytosis Slight Microcytosis Slight Ovalocytes Few Schistocytes Occ Prothrombin Time 17.8 SEC (11.7-14.0) Prothromb Time International Ratio 1.5 (0.8-1.1) Activated Partial Thromboplast Time 42 SEC (24-38) Sodium Level 139 mmol/L (136-145) Potassium Level 3.9 mmol/L (3.5-5.1) Chloride Level 105 mmol/L (98-107) Carbon Dioxide Level 25 mmol/L (21-32) Anion Gap 9 (6-14) Blood Urea Nitrogen 7 mg/dL (8-26) Creatinine 0.8 mg/dL (0.7-1.3) Estimated GFR (Cockcroft-Gault) 97.6 BUN/Creatinine Ratio 9 (6-20) Glucose Level 225 mg/dL (70-99) Calcium Level 8.1 mg/dL (8.5-10.1) Total Bilirubin 0.7 mg/dL (0.2-1.0) Aspartate Amino Transf (AST/SGOT) 25 U/L (15-37) Alanine Aminotransferase (ALT/SGPT) 20 U/L (16-63) Alkaline Phosphatase 87 U/L (46-116) Total Protein 7.1 g/dL (6.4-8.2) Albumin 2.8 g/dL (3.4-5.0) Albumin/Globulin Ratio 0.7 (1.0-1.7) Lipase 436 U/L (73-393) Glucose (Fingerstick) 147 mg/dL (70-99) 109 mg/dL (70-99) Allergies: Coded Allergies: No Known Drug Allergies (Unverified , 10/07/16) Medications: Current Medications Medications (Trade) Dose Ordered Sig/Venita Route PRN Reason Start Time Stop Time Status Last Admin Dose Admin Iohexol (Omnipaque 300 Mg/ml) 75 ml 1X ONCE IV 08/31/18 05:00 08/31/18 05:26 DC 08/31/18 05:16 Sodium Chloride 1,000 ml @ 100 mls/hr Q10H IV 08/31/18 06:00 09/01/18 05:59 08/31/18 08:21 Imaging: Imaging: CT A/P w/ IV contrast 08/31/18 FINDINGS: Large amount of enhancing structure surrounding the stomach and distal esophagus with a tubular appearance which could be from varices. Calcific atherosclerosis. Left greater than right fat-containing inguinal hernia. Cirrhotic liver morphology. Small amount of free fluid. Gallstones. Suspected low-density lesion at right lobe the liver posteriorly measuring at least 23 mm. Additional suspected liver lesion near the dome within the right lobe measuring up to about 27 mm. There is some haziness to the fat within the abdomen and pelvis. No peripancreatic fluid collection. The spleen is enlarged. Enlargement of portal vein. Multiple collateral vessels seen in the upper abdomen. No left-sided hydronephrosis. Urinary bladder is partially distended. The appendix does not appear dilated. Umbilical hernia suspected with some fat as well as vessels within as well as some edema. Suspected filling defect in a portion of the portal vein. Haziness to the fat adjacent to the duodenum. Enlarged lymph node in the upper abdomen portacaval region measuring up to about 14 mm short axis. Tubular low-density structure left lobe the liver. Degenerative changes throughout the spine with multilevel central canal and neural foraminal stenosis. Right lower rib fracture with some callus formation. Grade 1 anterolisthesis of L4 on 5. IMPRESSION: 1. Repeat demonstration of cirrhotic liver morphology with enlarged portal vein and splenomegaly which can be seen with cirrhosis with portal hypertension. 2. Filling defect is seen within the main portal vein as well as a low-density tubular structure within the left lobe the liver which could be secondary to thrombus within the left portal vein and main portal vein. 3. There is a couple of suspected low-density lesions within the liver. Would obtain a follow-up liver protocol CT or MRI to further evaluate given the patient's history of cirrhosis malignant neoplastic causes are within the differential but these have a nonspecific appearance on this exam. 4. Gallstones. 5. There is some edema seen throughout the abdomen and pelvis including adjacent to the duodenum. Could be related to the diffuse process but inflammation to the duodenum not excluded given the edema in the region. 6. Gastroesophageal varices, severe. 7. There are some enlarged lymph nodes in the upper abdomen. Could be reactive in nature but neoplastic causes are not excluded. PE: GEN: NAD HEENT: Atraumatic, PERRL LUNGS: CTAB HEART: RRR ABD: NABS, ?mildly distended, non-tender EXTREMITY: No edema SKIN: No rashes, no jaundice NEURO/PSYCH: A & O 3 A/P: A/P: Abdominal fullness - resolved Pancytopenia, coagulopathy, hypoalbuminemia Cirrhosis, portal hypertension, h/o esophageal and gastric varices - h/o Hep C and ?HCC, says both treated in [place] (around [id number]), recently resumed alcohol ( though now incarcerated again) Abnormal CT - report as above notes varices, hepatic lesions, enlarged PV w/ suspected filling defect, lymphadenopathy Mildly elevated lipase Cholelithiasis CRC screen - unclear timing but reports normal colonoscopy at one point -- Reviewed w/ Dr. Chon dumont for PO. Additional recs pending. JOSELIN MCDONALD Aug 31, 2018 13:36
--- NOTE | 2018-08-31 14:35 | PDOC ---
Provider Note Provider Note Hem-Onc consult: 1. Pancytopenia due to cirrhosis. 2. HCC - f/u with hepatology for surveillance. See dictation [id number] BRIDGER DE JESUS MD Aug 31, 2018 14:35
[2018-08-31 15:07] VITALS: BP 121/65
[2018-08-31] MEDS ORDERED: DEXTROSE 50% 25 GM / 50ML DISP.SYRIN. IV PRN ×2 (16:30)
[2018-08-31] MEDS: INSULIN LISPRO 300 UNITS/3 ML INSULN.PEN. SQ SCH (17:52)
[2018-08-31 19:00] VITALS: BP 118/69
[2018-08-31] MEDS ORDERED: INSULIN GLARGINE 300 UNITS/3 ML INSULN.PEN. SQ SCH (21:00)
[2018-08-31] MEDS ORDERED: ATORVASTATIN CALCIUM 10 MG TABLET. PO SCH (21:00)
[2018-08-31] MEDS ORDERED: TAMSULOSIN 0.4 MG CAP.ER.24H. PO SCH (21:00)
[2018-08-31 23:00] VITALS: BP 119/65
--- NOTE | 2018-09-01 00:46 | CONS ---
DATE OF CONSULTATION: 08/31/2018 MEDICAL ONCOLOGY CONSULTATION CONSULTATION REQUESTED BY: Dr. Maria Guadalupe Manrique REASON FOR CONSULTATION: Pancytopenia. HISTORY OF PRESENT ILLNESS: The patient is a 65-year-old gentleman who has history of alcoholic cirrhosis and chronic pancytopenia. Review of the old records indicates that he has had pancytopenia at least since September 2016 when his platelet count was 54,000 and WBC was 3.5 with a hemoglobin of 12.0. His CBC on 07/27/2018 revealed a WBC of 2.1 with a hemoglobin of 7.5 and a platelet count of 45,000. He was admitted to [facility] on 08/31/2018 for abdominal pain and abdominal distention. He underwent a CT scan of the abdomen and pelvis on 08/31/2018, which revealed cirrhotic liver and enlarged portal vein and splenomegaly consistent with portal hypertension. Filling defect in the main portal vein could be secondary to a thrombus within the left portal vein and main portal vein. There are a couple of suspected low density lesions within the liver, which are nonspecific on this exam. The patient does have a history of hepatocellular carcinoma diagnosed in 2016 and treated at [facility]. He underwent TACE (transarterial chemoembolization) with doxorubicin-eluting beads at [facility] on 06/15/2017. Review of the alpha-fetoprotein levels indicates that it was as high as 1527.7 on 06/14/2017 and it decreased to 126.8 on 01/24/2018. Review of the MRI of the abdomen on 01/20/2018 revealed previously treated masses in segments 3, 6 and 8-4A of the liver. No appreciable nodular arterial enhancement to suggest recurrent tumor. There was also evidence of cirrhosis and portal hypertension with splenomegaly. The patient is being followed at Hepatology by Dr. Yvette Carrizales. However, he mentions that he could not keep his most recent appointment. PAST MEDICAL HISTORY: Hepatocellular carcinoma, cirrhosis of the liver, hepatitis C, esophageal and gastric varices, diabetes, hyperlipidemia, benign prostatic hypertrophy, cataracts, cholelithiasis. FAMILY HISTORY: Negative for liver cancer. SOCIAL HISTORY: He has a history of heavy alcohol use, which he has quit 5 weeks ago. He has also quit smoking. REVIEW OF SYSTEMS: A 12-point review of systems was performed. Pertinent positives are mentioned in the history of present illness. Rest of the system review is negative. PHYSICAL EXAMINATION: GENERAL APPEARANCE: The patient is a 65-year-old gentleman who is in no acute cardiorespiratory distress. VITAL SIGNS: Blood pressure 127/68, temperature 98.2. HEENT: Head: Atraumatic, normocephalic. Eyes: No icterus. NECK: Supple. CHEST: Bilaterally symmetrical. No crepitations or rhonchi heard. HEART: S1, S2 normal. ABDOMEN: Soft, nontender, mildly distended. CENTRAL NERVOUS SYSTEM: No focal deficits. LYMPHATICS: No lymphadenopathy. SKIN: No rashes. PSYCHOLOGIC: Mood and affect are appropriate. LABORATORY DATA: WBC 1.5, hemoglobin 7.9, platelet count 30. IMPRESSION AND PLAN: 1. Pancytopenia secondary to cirrhosis of the liver and portal hypertension and splenomegaly. I reviewed the old records including records from [facility] and he has had chronic pancytopenia. Platelets are slightly worse than what it was before. However, there is no evidence of bleeding and hence it is reasonable to continue to monitor. If he develops any bleeding, then I would recommend platelet transfusions. 2. Hepatocellular carcinoma diagnosed in 2017. His alpha-fetoprotein level was 1527.7 on 06/14/2017. He underwent transarterial chemoembolization on 06/15/2017 at [facility]. He had a good response with improvement in the alpha-fetoprotein level down to 126.8 on 01/24/2018. He also had a followup MRI of the abdomen on 01/20/2018 that revealed favorable results with no evidence of recurrence. The current CAT scan reveals nonspecific lesions and no definite evidence of recurrence. 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 BRIDGER DE JESUS MD DR: HARDY/irma JOB#: [id number] / [id number] MARIANGEL
[2018-09-01 03:00] VITALS: BP 133/67
[2018-09-01] MEDS: IV NORMAL SALINE 1000ML BAG 1,000 ML IV SCH (03:43)
[2018-09-01 04:23] LABS: BASO % 1 % (0-3); EOS % 2 % (0-3); HEMATOCRIT 26.4 % (39.0-53.0); HEMOGLOBIN 8.2 g/dL (13.0-17.5); LYMPH # 0.3 x10^3/uL (1.0-4.8); LYMPH % 21 % (24-48); MEAN CORPUSCULAR HEMOGLOBIN 23 pg (25-35); MEAN CORPUSCULAR HGB CONC 31 g/dL (31-37); MEAN CORPUSCULAR VOLUME 73 fL (79-100); MONO # 0.1 x10^3/uL (0.0-1.1); MONO % 10 % (0-9); NEUT # 0.9 x10^3uL (1.8-7.7); NEUT % 67 % (31-73); PLATELET COUNT 39 x10^3/uL (140-400); RED BLOOD COUNT 3.63 x10^6/uL (4.30-5.70); RED CELL DISTRIBUTION WIDTH 19.2 % (11.5-14.5)
[2018-09-01 05:11] LABS: WHITE BLOOD COUNT 1.4 x10^3/uL (4.0-11.0)
[2018-09-01 05:32] LABS: ALBUMIN 2.8 g/dL (3.4-5.0); ALBUMIN/GLOBULIN RATIO 0.7 (1.0-1.7); CALCIUM 8.1 mg/dL (8.5-10.1); CREATININE 0.8 mg/dL (0.7-1.3); GFR 97.6; POTASSIUM 3.9 mmol/L (3.5-5.1); TOTAL BILIRUBIN 0.8 mg/dL (0.2-1.0)
[2018-09-01 07:00] VITALS: BP 140/73
--- NOTE | 2018-09-01 07:27 | NUR ---
Pt is now on neutropenic prec
[2018-09-01] MEDS: INSULIN LISPRO 300 UNITS/3 ML INSULN.PEN. SQ SCH ×2 (08:00→12:04)
--- NOTE | 2018-09-01 08:49 | PDOC ---
PROGRESS NOTES Subjective Subjective HPI - f/u of Pancytopenia secondary to cirrhosis of the liver and portal hypertension and splenomegaly. ROS - no bleed Objective Objective Vital Signs Date Time Temp Pulse Resp B/P (MAP) Pulse Ox O2 Delivery O2 Flow Rate FiO2 09/01/18 07:00 97.4 86 16 140/73 (95) 99 Room Air 97.4 Intake and Output 09/01/18 06:59 Intake Total 1040 ml Output Total 2275 ml Balance -1235 ml Intake Oral 1040 ml Output Urine Total 2275 ml Physical Exam General: Alert, Oriented X3, No acute distress Neuro: Normal speech Psych/Mental Status: Mental status NL Assessment Assessment Problems Medical Problems: (1) Pancytopenia Status: Acute IMPRESSION AND PLAN: 1. Pancytopenia secondary to cirrhosis of the liver and portal hypertension and splenomegaly. I reviewed the old records including records from [facility] and he has had chronic pancytopenia. Platelets are slightly worse than what it was before. However, there is no evidence of bleeding and hence it is reasonable to continue to monitor. If he develops any bleeding, then I would recommend platelet transfusions. Plt better at 39. 2. Hepatocellular carcinoma diagnosed in 2017. His alpha-fetoprotein level was 1527.7 on 06/14/2017. He underwent transarterial chemoembolization on 06/15/2017 at [facility]. He had a good response with improvement in the alpha-fetoprotein level down to 126.8 on 01/24/2018. He also had a followup MRI of the abdomen on 01/20/2018 that revealed favorable results with no evidence of recurrence. The current CAT scan reveals nonspecific lesions and no definite evidence of recurrence. 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 I gadiel/dorene Anderson from GI. Comment Review of Relevant I have reviewed the following items perry (where applicable) has been applied. Labs Laboratory Tests Test 08/31/18 04:15 08/31/18 07:40 08/31/18 11:10 08/31/18 16:22 White Blood Count 1.5 x10^3/uL (4.0-11.0) Red Blood Count 3.58 x10^6/uL (4.30-5.70) Hemoglobin 7.9 g/dL (13.0-17.5) Hematocrit 26.0 % (39.0-53.0) Mean Corpuscular Volume 72 fL (79-100) Mean Corpuscular Hemoglobin 22 pg (25-35) Mean Corpuscular Hemoglobin Concent 30 g/dL (31-37) Red Cell Distribution Width 19.0 % (11.5-14.5) Platelet Count 37 x10^3/uL (140-400) Neutrophils (%) (Auto) 71 % (31-73) Lymphocytes (%) (Auto) 19 % (24-48) Monocytes (%) (Auto) 9 % (0-9) Eosinophils (%) (Auto) 1 % (0-3) Basophils (%) (Auto) 0 % (0-3) Neutrophils # (Auto) 1.0 x10^3uL (1.8-7.7) Lymphocytes # (Auto) 0.3 x10^3/uL (1.0-4.8) Monocytes # (Auto) 0.1 x10^3/uL (0.0-1.1) Eosinophils # (Auto) 0.0 x10^3/uL (0.0-0.7) Basophils # (Auto) 0.0 x10^3/uL (0.0-0.2) Segmented Neutrophils % 75 % (35-66) Lymphocytes % 17 % (24-48) Monocytes % 6 % (0-10) Eosinophils % 1 % (0-5) Basophils % 1 % (0-3) Platelet Estimate Decreased (ADEQUATE) Hypochromasia Mod Poikilocytosis Slight Anisocytosis Slight Microcytosis Slight Ovalocytes Few Schistocytes Occ Prothrombin Time 17.8 SEC (11.7-14.0) Prothromb Time International Ratio 1.5 (0.8-1.1) Activated Partial Thromboplast Time 42 SEC (24-38) Sodium Level 139 mmol/L (136-145) Potassium Level 3.9 mmol/L (3.5-5.1) Chloride Level 105 mmol/L (98-107) Carbon Dioxide Level 25 mmol/L (21-32) Anion Gap 9 (6-14) Blood Urea Nitrogen 7 mg/dL (8-26) Creatinine 0.8 mg/dL (0.7-1.3) Estimated GFR (Cockcroft-Gault) 97.6 BUN/Creatinine Ratio 9 (6-20) Glucose Level 225 mg/dL (70-99) Calcium Level 8.1 mg/dL (8.5-10.1) Total Bilirubin 0.7 mg/dL (0.2-1.0) Aspartate Amino Transf (AST/SGOT) 25 U/L (15-37) Alanine Aminotransferase (ALT/SGPT) 20 U/L (16-63) Alkaline Phosphatase 87 U/L (46-116) Total Protein 7.1 g/dL (6.4-8.2) Albumin 2.8 g/dL (3.4-5.0) Albumin/Globulin Ratio 0.7 (1.0-1.7) Lipase 436 U/L (73-393) Glucose (Fingerstick) 147 mg/dL (70-99) 109 mg/dL (70-99) 218 mg/dL (70-99) Test 08/31/18 20:22 09/01/18 04:00 09/01/18 08:07 Glucose (Fingerstick) 220 mg/dL (70-99) 83 mg/dL (70-99) White Blood Count 1.4 x10^3/uL (4.0-11.0) Red Blood Count 3.63 x10^6/uL (4.30-5.70) Hemoglobin 8.2 g/dL (13.0-17.5) Hematocrit 26.4 % (39.0-53.0) Mean Corpuscular Volume 73 fL (79-100) Mean Corpuscular Hemoglobin 23 pg (25-35) Mean Corpuscular Hemoglobin Concent 31 g/dL (31-37) Red Cell Distribution Width 19.2 % (11.5-14.5) Platelet Count 39 x10^3/uL (140-400) Neutrophils (%) (Auto) 67 % (31-73) Lymphocytes (%) (Auto) 21 % (24-48) Monocytes (%) (Auto) 10 % (0-9) Eosinophils (%) (Auto) 2 % (0-3) Basophils (%) (Auto) 1 % (0-3) Neutrophils # (Auto) 0.9 x10^3uL (1.8-7.7) Lymphocytes # (Auto) 0.3 x10^3/uL (1.0-4.8) Monocytes # (Auto) 0.1 x10^3/uL (0.0-1.1) Eosinophils # (Auto) 0.0 x10^3/uL (0.0-0.7) Basophils # (Auto) 0.0 x10^3/uL (0.0-0.2) Sodium Level 141 mmol/L (136-145) Potassium Level 3.9 mmol/L (3.5-5.1) Chloride Level 108 mmol/L (98-107) Carbon Dioxide Level 24 mmol/L (21-32) Anion Gap 9 (6-14) Blood Urea Nitrogen 6 mg/dL (8-26) Creatinine 0.8 mg/dL (0.7-1.3) Estimated GFR (Cockcroft-Gault) 97.6 BUN/Creatinine Ratio 8 (6-20) Glucose Level 109 mg/dL (70-99) Calcium Level 8.1 mg/dL (8.5-10.1) Total Bilirubin 0.8 mg/dL (0.2-1.0) Aspartate Amino Transf (AST/SGOT) 26 U/L (15-37) Alanine Aminotransferase (ALT/SGPT) 23 U/L (16-63) Alkaline Phosphatase 78 U/L (46-116) Total Protein 7.0 g/dL (6.4-8.2) Albumin 2.8 g/dL (3.4-5.0) Albumin/Globulin Ratio 0.7 (1.0-1.7) Laboratory Tests Test 08/31/18 11:10 08/31/18 16:22 08/31/18 20:22 09/01/18 04:00 Glucose (Fingerstick) 109 mg/dL (70-99) 218 mg/dL (70-99) 220 mg/dL (70-99) White Blood Count 1.4 x10^3/uL (4.0-11.0) Red Blood Count 3.63 x10^6/uL (4.30-5.70) Hemoglobin 8.2 g/dL (13.0-17.5) Hematocrit 26.4 % (39.0-53.0) Mean Corpuscular Volume 73 fL (79-100) Mean Corpuscular Hemoglobin 23 pg (25-35) Mean Corpuscular Hemoglobin Concent 31 g/dL (31-37) Red Cell Distribution Width 19.2 % (11.5-14.5) Platelet Count 39 x10^3/uL (140-400) Neutrophils (%) (Auto) 67 % (31-73) Lymphocytes (%) (Auto) 21 % (24-48) Monocytes (%) (Auto) 10 % (0-9) Eosinophils (%) (Auto) 2 % (0-3) Basophils (%) (Auto) 1 % (0-3) Neutrophils # (Auto) 0.9 x10^3uL (1.8-7.7) Lymphocytes # (Auto) 0.3 x10^3/uL (1.0-4.8) Monocytes # (Auto) 0.1 x10^3/uL (0.0-1.1) Eosinophils # (Auto) 0.0 x10^3/uL (0.0-0.7) Basophils # (Auto) 0.0 x10^3/uL (0.0-0.2) Sodium Level 141 mmol/L (136-145) Potassium Level 3.9 mmol/L (3.5-5.1) Chloride Level 108 mmol/L (98-107) Carbon Dioxide Level 24 mmol/L (21-32) Anion Gap 9 (6-14) Blood Urea Nitrogen 6 mg/dL (8-26) Creatinine 0.8 mg/dL (0.7-1.3) Estimated GFR (Cockcroft-Gault) 97.6 BUN/Creatinine Ratio 8 (6-20) Glucose Level 109 mg/dL (70-99) Calcium Level 8.1 mg/dL (8.5-10.1) Total Bilirubin 0.8 mg/dL (0.2-1.0) Aspartate Amino Transf (AST/SGOT) 26 U/L (15-37) Alanine Aminotransferase (ALT/SGPT) 23 U/L (16-63) Alkaline Phosphatase 78 U/L (46-116) Total Protein 7.0 g/dL (6.4-8.2) Albumin 2.8 g/dL (3.4-5.0) Albumin/Globulin Ratio 0.7 (1.0-1.7) Test 09/01/18 08:07 Glucose (Fingerstick) 83 mg/dL (70-99) Medications Current Medications Iohexol (Omnipaque 300 Mg/ml) 75 ml 1X ONCE IV Last administered on 08/31/18at 05:16; Start 08/31/18 at 05:00; Stop 08/31/18 at 05:26; Status DC Info (CONTRAST GIVEN -- Rx MONITORING) 1 each PRN DAILY PRN MC SEE COMMENTS; Start 08/31/18 at 05:30; Stop 09/02/18 at 05:29 Ondansetron HCl (Zofran) 4 mg PRN Q8HRS PRN IV NAUSEA/VOMITING; Start 08/31/18 at 06:00; Stop 09/01/18 at 05:59; Status DC Fentanyl Citrate (Fentanyl 2ml Vial) 25 mcg PRN Q2HR PRN IV PAIN; Start at 06:00 Sodium Chloride 1,000 ml @ 100 mls/hr Q10H IV Last administered on 09/01/18at 03:43; Start 08/31/18 at 06:00; Stop 09/01/18 at 05:59; Status DC Atorvastatin Calcium (Lipitor) 10 mg HS PO Last administered on 08/31/18at 20:40 ; Start 08/31/18 at 21:00 Insulin Glargine (Lantus) 30 units QHS SQ Last administered on 08/31/18at 20:48 ; Start 08/31/18 at 21:00 Tamsulosin HCl (Flomax) 0.4 mg HS PO Last administered on 08/31/18at 20:40; Start 08/31/18 at 21:00 Metformin HCl (Glucophage) 500 mg BIDWMEALS PO ; Start 09/03/18 at 08:00 Dextrose (Dextrose 50%-Water Syringe) 12.5 gm PRN Q15MIN PRN IV SEE COMMENTS; Start 08/31/18 at 16:30; Stop 08/31/18 at 16:30; Status DC Insulin Human Lispro (HumaLOG) 0-5 UNITS TIDWMEALS SQ Last administered on 08/31at 17:52; Start 08/31/18 at 17:00 Dextrose (Dextrose 50%-Water Syringe) 12.5 gm PRN Q15MIN PRN IV SEE COMMENTS; Start 08/31/18 at 16:30 Active Scripts Active Reported Flomax (Tamsulosin Hcl) 0.4 Mg Cap.er.24h 0.4 Mg PO HS Metformin Hcl 1,000 Mg Tablet 1,000 Mg PO BIDWMEALS Lantus Solostar (Insulin Glargine,Hum.rec.anlog) 100 Unit/1 Ml Insuln.pen 30 Unit SQ QHS Atorvastatin Calcium 10 Mg Tablet 10 Mg PO HS Vitals/I & O Vital Sign - Last 24 Hours 08/31/18 08/31/18 08/31/18 08/31/18 11:05 15:07 19:00 20:00 Temp 98.2 97.9 98.7 98.2 97.9 98.7 Pulse 88 88 82 Resp 18 20 18 B/P (MAP) 127/68 (87) 121/65 (83) 118/69 (85) Pulse Ox 96 97 98 O2 Delivery Room Air Room Air Room Air Room Air 08/31/18 09/01/18 09/01/18 23:00 03:00 07:00 Temp 98.4 97.8 97.4 98.4 97.8 97.4 Pulse 74 84 86 Resp 18 18 16 B/P (MAP) 119/65 (83) 133/67 (89) 140/73 (95) Pulse Ox 98 98 99 O2 Delivery Room Air Room Air Room Air Intake and Output 08/31/18 08/31/18 09/01/18 14:59 22:59 06:59 Intake Total 240 ml 700 ml 100 ml Output Total 700 ml 925 ml 650 ml Balance -460 ml -225 ml -550 ml BRIDGER DE JESUS MD Sep 01, 2018 08:49
--- NOTE | 2018-09-01 10:57 | SNU/HH DC ---
DISCHARGE WITH HOME HEALTH DISCHARGE INFORMATION: Final Diagnosis: Problems Medical Problems: (1) Pancytopenia Status: Acute Condition on Discharge: Stable HOME HEALTH: Face to Face: I certify this patient is under my care and that I, or a nurse practitioner or physician's assistant art director working with me, had a face to face encounter that meets the physician face to face encounter requirements with this patient on []. Medical Complications: Other (cirhosis) POST DISCHARGE ORDERS: DIET AFTER DISCHARGE: hepatic CERTIFICATION STATEMENT: Certification Statement: Certification Statement: Based on the above finding, I certify that this patient is confined to the home and needs intermittent mcfp care, physical therapy and/or speech therapy, or continues to need occupational therapy.~ This patient is under my care, and I have initiated the establishment of the plan of care.~ This patient will be followed by myself or a community physician who will periodically review the plan of care. Home Meds Reported Medications Tamsulosin Hcl (FLOMAX) 0.4 Mg Cap.er.24h, 0.4 MG PO HS for urinary frequency, TAB 08/31/18 Metformin Hcl (METFORMIN HCL) 1,000 Mg Tablet, 1000 MG PO BIDWMEALS for dm, TAB 08/31/18 Insulin Glargine,Hum.rec.anlog (LANTUS SOLOSTAR) 100 Unit/1 Ml Insuln.pen, 30 UNIT SQ QHS for dm, #15 ML 3 Refills 08/31/18 Atorvastatin Calcium (ATORVASTATIN CALCIUM) 10 Mg Tablet, 10 MG PO HS for FOR CHOLESTEROL, #30 TAB 0 Refills 08/31/18 TANISHA LEI III DO Sep 01, 2018 10:57
[2018-09-01 10:59] VITALS: BP 140/70
--- NOTE | 2018-09-01 11:25 | PDOC ---
PROGRESS NOTES Chief Complaint Chief Complaint Pancytopenia Hepatocellular carcinoma Hepatitis C Alcoholism Splenomegaly Esophageal varices DM2 H/o cocaine use Incarcerated History of Present Illness History of Present Illness Mr Echavarria is a 65yo M who presents from residential with abdominal distention and was found to be pancytopenic 2/2 cirrhosis, HCC, Hep C, alcohol abuse, splenomegaly. Pt was seen and examined this morning He was dressed in a hospital gown with a disheveled appearance Officers were at bedside and outside of pt room Pt was resting in bed with NAD, denies complaints today Discussed with RN Vitals Vitals Vital Signs Date Time Temp Pulse Resp B/P (MAP) Pulse Ox O2 Delivery O2 Flow Rate FiO2 09/01/18 10:59 97.4 84 16 140/70 (93) 98 Room Air 97.4 Physical Exam General: Alert, Oriented X3, No acute distress Heart: Regular rate, No murmurs Lungs: Clear, Other Abdomen: Normal bowel sounds, Soft, Other (some abdominal distension, ecchymosis from anticoagulation shots) Extremities: No clubbing, No cyanosis Skin: No rashes, No breakdown Labs LABS Laboratory Tests Test 08/31/18 16:22 08/31/18 20:22 09/01/18 04:00 09/01/18 08:07 Glucose (Fingerstick) 218 mg/dL (70-99) 220 mg/dL (70-99) 83 mg/dL (70-99) White Blood Count 1.4 x10^3/uL (4.0-11.0) Red Blood Count 3.63 x10^6/uL (4.30-5.70) Hemoglobin 8.2 g/dL (13.0-17.5) Hematocrit 26.4 % (39.0-53.0) Mean Corpuscular Volume 73 fL (79-100) Mean Corpuscular Hemoglobin 23 pg (25-35) Mean Corpuscular Hemoglobin Concent 31 g/dL (31-37) Red Cell Distribution Width 19.2 % (11.5-14.5) Platelet Count 39 x10^3/uL (140-400) Neutrophils (%) (Auto) 67 % (31-73) Lymphocytes (%) (Auto) 21 % (24-48) Monocytes (%) (Auto) 10 % (0-9) Eosinophils (%) (Auto) 2 % (0-3) Basophils (%) (Auto) 1 % (0-3) Neutrophils # (Auto) 0.9 x10^3uL (1.8-7.7) Lymphocytes # (Auto) 0.3 x10^3/uL (1.0-4.8) Monocytes # (Auto) 0.1 x10^3/uL (0.0-1.1) Eosinophils # (Auto) 0.0 x10^3/uL (0.0-0.7) Basophils # (Auto) 0.0 x10^3/uL (0.0-0.2) Sodium Level 141 mmol/L (136-145) Potassium Level 3.9 mmol/L (3.5-5.1) Chloride Level 108 mmol/L (98-107) Carbon Dioxide Level 24 mmol/L (21-32) Anion Gap 9 (6-14) Blood Urea Nitrogen 6 mg/dL (8-26) Creatinine 0.8 mg/dL (0.7-1.3) Estimated GFR (Cockcroft-Gault) 97.6 BUN/Creatinine Ratio 8 (6-20) Glucose Level 109 mg/dL (70-99) Calcium Level 8.1 mg/dL (8.5-10.1) Total Bilirubin 0.8 mg/dL (0.2-1.0) Aspartate Amino Transf (AST/SGOT) 26 U/L (15-37) Alanine Aminotransferase (ALT/SGPT) 23 U/L (16-63) Alkaline Phosphatase 78 U/L (46-116) Total Protein 7.0 g/dL (6.4-8.2) Albumin 2.8 g/dL (3.4-5.0) Albumin/Globulin Ratio 0.7 (1.0-1.7) Review of Systems Review of Systems Pt denies CP, SOB, MORENO, n/v/d Assessment and Plan Assessmemt and Plan Problems Medical Problems: (1) Pancytopenia Status: Acute Assessment Pancytopenia Hepatocellular carcinoma Hepatitis C Alcoholism Splenomegaly Esophageal varices DM2 H/o cocaine use Incarcerated Plan Will D/C to [facility] today- approved by Heme/Onc Monitoring for any bleeding GI consulted- no further recs Heme/Onc consulted- believe this is chronic pancytopenia 2/2 long standing liver disease (cancer, cirrhosis, hepatitis C) and is essentially at his baseline blood counts IVF as needed CLD DVT prophylaxis Home meds for now Comment Review of Relevant I have reviewed the following items perry (where applicable) has been applied. Labs Laboratory Tests Test 08/31/18 04:15 08/31/18 07:40 08/31/18 09:55 08/31/18 11:10 White Blood Count 1.5 x10^3/uL (4.0-11.0) Red Blood Count 3.58 x10^6/uL (4.30-5.70) Hemoglobin 7.9 g/dL (13.0-17.5) Hematocrit 26.0 % (39.0-53.0) Mean Corpuscular Volume 72 fL (79-100) Mean Corpuscular Hemoglobin 22 pg (25-35) Mean Corpuscular Hemoglobin Concent 30 g/dL (31-37) Red Cell Distribution Width 19.0 % (11.5-14.5) Platelet Count 37 x10^3/uL (140-400) Neutrophils (%) (Auto) 71 % (31-73) Lymphocytes (%) (Auto) 19 % (24-48) Monocytes (%) (Auto) 9 % (0-9) Eosinophils (%) (Auto) 1 % (0-3) Basophils (%) (Auto) 0 % (0-3) Neutrophils # (Auto) 1.0 x10^3uL (1.8-7.7) Lymphocytes # (Auto) 0.3 x10^3/uL (1.0-4.8) Monocytes # (Auto) 0.1 x10^3/uL (0.0-1.1) Eosinophils # (Auto) 0.0 x10^3/uL (0.0-0.7) Basophils # (Auto) 0.0 x10^3/uL (0.0-0.2) Segmented Neutrophils % 75 % (35-66) Lymphocytes % 17 % (24-48) Monocytes % 6 % (0-10) Eosinophils % 1 % (0-5) Basophils % 1 % (0-3) Platelet Estimate Decreased (ADEQUATE) Hypochromasia Mod Poikilocytosis Slight Anisocytosis Slight Microcytosis Slight Ovalocytes Few Schistocytes Occ Prothrombin Time 17.8 SEC (11.7-14.0) Prothromb Time International Ratio 1.5 (0.8-1.1) Activated Partial Thromboplast Time 42 SEC (24-38) Sodium Level 139 mmol/L (136-145) Potassium Level 3.9 mmol/L (3.5-5.1) Chloride Level 105 mmol/L (98-107) Carbon Dioxide Level 25 mmol/L (21-32) Anion Gap 9 (6-14) Blood Urea Nitrogen 7 mg/dL (8-26) Creatinine 0.8 mg/dL (0.7-1.3) Estimated GFR (Cockcroft-Gault) 97.6 BUN/Creatinine Ratio 9 (6-20) Glucose Level 225 mg/dL (70-99) Calcium Level 8.1 mg/dL (8.5-10.1) Total Bilirubin 0.7 mg/dL (0.2-1.0) Aspartate Amino Transf (AST/SGOT) 25 U/L (15-37) Alanine Aminotransferase (ALT/SGPT) 20 U/L (16-63) Alkaline Phosphatase 87 U/L (46-116) Total Protein 7.1 g/dL (6.4-8.2) Albumin 2.8 g/dL (3.4-5.0) Albumin/Globulin Ratio 0.7 (1.0-1.7) Lipase 436 U/L (73-393) Glucose (Fingerstick) 147 mg/dL (70-99) 109 mg/dL (70-99) Nasal Screen MRSA (PCR) Negative (Negative) Test 08/31/18 16:22 08/31/18 20:22 09/01/18 04:00 09/01/18 08:07 Glucose (Fingerstick) 218 mg/dL (70-99) 220 mg/dL (70-99) 83 mg/dL (70-99) White Blood Count 1.4 x10^3/uL (4.0-11.0) Red Blood Count 3.63 x10^6/uL (4.30-5.70) Hemoglobin 8.2 g/dL (13.0-17.5) Hematocrit 26.4 % (39.0-53.0) Mean Corpuscular Volume 73 fL (79-100) Mean Corpuscular Hemoglobin 23 pg (25-35) Mean Corpuscular Hemoglobin Concent 31 g/dL (31-37) Red Cell Distribution Width 19.2 % (11.5-14.5) Platelet Count 39 x10^3/uL (140-400) Neutrophils (%) (Auto) 67 % (31-73) Lymphocytes (%) (Auto) 21 % (24-48) Monocytes (%) (Auto) 10 % (0-9) Eosinophils (%) (Auto) 2 % (0-3) Basophils (%) (Auto) 1 % (0-3) Neutrophils # (Auto) 0.9 x10^3uL (1.8-7.7) Lymphocytes # (Auto) 0.3 x10^3/uL (1.0-4.8) Monocytes # (Auto) 0.1 x10^3/uL (0.0-1.1) Eosinophils # (Auto) 0.0 x10^3/uL (0.0-0.7) Basophils # (Auto) 0.0 x10^3/uL (0.0-0.2) Sodium Level 141 mmol/L (136-145) Potassium Level 3.9 mmol/L (3.5-5.1) Chloride Level 108 mmol/L (98-107) Carbon Dioxide Level 24 mmol/L (21-32) Anion Gap 9 (6-14) Blood Urea Nitrogen 6 mg/dL (8-26) Creatinine 0.8 mg/dL (0.7-1.3) Estimated GFR (Cockcroft-Gault) 97.6 BUN/Creatinine Ratio 8 (6-20) Glucose Level 109 mg/dL (70-99) Calcium Level 8.1 mg/dL (8.5-10.1) Total Bilirubin 0.8 mg/dL (0.2-1.0) Aspartate Amino Transf (AST/SGOT) 26 U/L (15-37) Alanine Aminotransferase (ALT/SGPT) 23 U/L (16-63) Alkaline Phosphatase 78 U/L (46-116) Total Protein 7.0 g/dL (6.4-8.2) Albumin 2.8 g/dL (3.4-5.0) Albumin/Globulin Ratio 0.7 (1.0-1.7) Laboratory Tests Test 08/31/18 16:22 08/31/18 20:22 09/01/18 04:00 09/01/18 08:07 Glucose (Fingerstick) 218 mg/dL (70-99) 220 mg/dL (70-99) 83 mg/dL (70-99) White Blood Count 1.4 x10^3/uL (4.0-11.0) Red Blood Count 3.63 x10^6/uL (4.30-5.70) Hemoglobin 8.2 g/dL (13.0-17.5) Hematocrit 26.4 % (39.0-53.0) Mean Corpuscular Volume 73 fL (79-100) Mean Corpuscular Hemoglobin 23 pg (25-35) Mean Corpuscular Hemoglobin Concent 31 g/dL (31-37) Red Cell Distribution Width 19.2 % (11.5-14.5) Platelet Count 39 x10^3/uL (140-400) Neutrophils (%) (Auto) 67 % (31-73) Lymphocytes (%) (Auto) 21 % (24-48) Monocytes (%) (Auto) 10 % (0-9) Eosinophils (%) (Auto) 2 % (0-3) Basophils (%) (Auto) 1 % (0-3) Neutrophils # (Auto) 0.9 x10^3uL (1.8-7.7) Lymphocytes # (Auto) 0.3 x10^3/uL (1.0-4.8) Monocytes # (Auto) 0.1 x10^3/uL (0.0-1.1) Eosinophils # (Auto) 0.0 x10^3/uL (0.0-0.7) Basophils # (Auto) 0.0 x10^3/uL (0.0-0.2) Sodium Level 141 mmol/L (136-145) Potassium Level 3.9 mmol/L (3.5-5.1) Chloride Level 108 mmol/L (98-107) Carbon Dioxide Level 24 mmol/L (21-32) Anion Gap 9 (6-14) Blood Urea Nitrogen 6 mg/dL (8-26) Creatinine 0.8 mg/dL (0.7-1.3) Estimated GFR (Cockcroft-Gault) 97.6 BUN/Creatinine Ratio 8 (6-20) Glucose Level 109 mg/dL (70-99) Calcium Level 8.1 mg/dL (8.5-10.1) Total Bilirubin 0.8 mg/dL (0.2-1.0) Aspartate Amino Transf (AST/SGOT) 26 U/L (15-37) Alanine Aminotransferase (ALT/SGPT) 23 U/L (16-63) Alkaline Phosphatase 78 U/L (46-116) Total Protein 7.0 g/dL (6.4-8.2) Albumin 2.8 g/dL (3.4-5.0) Albumin/Globulin Ratio 0.7 (1.0-1.7) Medications Current Medications Iohexol (Omnipaque 300 Mg/ml) 75 ml 1X ONCE IV Last administered on 08/31/18at 05:16; Start 08/31/18 at 05:00; Stop 08/31/18 at 05:26; Status DC Info (CONTRAST GIVEN -- Rx MONITORING) 1 each PRN DAILY PRN MC SEE COMMENTS; Start 08/31/18 at 05:30; Stop 09/02/18 at 05:29 Ondansetron HCl (Zofran) 4 mg PRN Q8HRS PRN IV NAUSEA/VOMITING; Start 08/31/18 at 06:00; Stop 09/01/18 at 05:59; Status DC Fentanyl Citrate (Fentanyl 2ml Vial) 25 mcg PRN Q2HR PRN IV PAIN; Start at 06:00 Sodium Chloride 1,000 ml @ 100 mls/hr Q10H IV Last administered on 09/01/18at 03:43; Start 08/31/18 at 06:00; Stop 09/01/18 at 05:59; Status DC Atorvastatin Calcium (Lipitor) 10 mg HS PO Last administered on 08/31/18at 20:40 ; Start 08/31/18 at 21:00 Insulin Glargine (Lantus) 30 units QHS SQ Last administered on 08/31/18at 20:48 ; Start 08/31/18 at 21:00 Tamsulosin HCl (Flomax) 0.4 mg HS PO Last administered on 08/31/18at 20:40; Start 08/31/18 at 21:00 Metformin HCl (Glucophage) 500 mg BIDWMEALS PO ; Start 09/03/18 at 08:00 Dextrose (Dextrose 50%-Water Syringe) 12.5 gm PRN Q15MIN PRN IV SEE COMMENTS; Start 08/31/18 at 16:30; Stop 08/31/18 at 16:30; Status DC Insulin Human Lispro (HumaLOG) 0-5 UNITS TIDWMEALS SQ Last administered on 08/31at 17:52; Start 08/31/18 at 17:00 Dextrose (Dextrose 50%-Water Syringe) 12.5 gm PRN Q15MIN PRN IV SEE COMMENTS; Start 08/31/18 at 16:30 Active Scripts Active Reported Flomax (Tamsulosin Hcl) 0.4 Mg Cap.er.24h 0.4 Mg PO HS Metformin Hcl 1,000 Mg Tablet 1,000 Mg PO BIDWMEALS Lantus Solostar (Insulin Glargine,Hum.rec.anlog) 100 Unit/1 Ml Insuln.pen 30 Unit SQ QHS Atorvastatin Calcium 10 Mg Tablet 10 Mg PO HS Vitals/I & O Vital Sign - Last 24 Hours 08/31/18 08/31/18 08/31/18 08/31/18 15:07 19:00 20:00 23:00 Temp 97.9 98.7 98.4 97.9 98.7 98.4 Pulse 88 82 74 Resp 20 18 18 B/P (MAP) 121/65 (83) 118/69 (85) 119/65 (83) Pulse Ox 97 98 98 O2 Delivery Room Air Room Air Room Air Room Air 09/01/18 09/01/18 09/01/18 03:00 07:00 10:59 Temp 97.8 97.4 97.4 97.8 97.4 97.4 Pulse 84 86 84 Resp 18 16 16 B/P (MAP) 133/67 (89) 140/73 (95) 140/70 (93) Pulse Ox 98 99 98 O2 Delivery Room Air Room Air Room Air Intake and Output 08/31/18 08/31/18 09/01/18 14:59 22:59 06:59 Intake Total 240 ml 700 ml 100 ml Output Total 700 ml 925 ml 650 ml Balance -460 ml -225 ml -550 ml TANISHA LEI III DO Sep 01, 2018 11:25
--- NOTE | 2018-09-01 12:04 | DS ---
DATE OF DISCHARGE: 09/01/2018 ADMISSION DIAGNOSES: Pancytopenia, history of hepatocellular carcinoma, cocaine abuse, hepatitis C and alcohol. DISCHARGE DIAGNOSIS: Chronic pancytopenia. CONSULTS: Oncology and GI. PROCEDURES: None. HOSPITAL COURSE: The patient is a pleasant 65-year-old male who resides at the [facility]. He is back in longterm for parole violation. He has had a hard life and he has done a lot of cocaine and alcohol and actually developed hep C and hepatocellular carcinoma. He was seen at and treated for that. At this time, he came in with pancytopenia. He was weak. We admitted him. The above consults were obtained. I talked to Dr. Montes this morning. He feels like this is chronic pancytopenia and he is okay with the patient being discharged. Clinically, the patient looks great. We plan to discharge him back to longterm. DISPOSITION: Longterm. ACTIVITY: As tolerated. DIET: Low sodium. MEDICATIONS: Please see the MRAD. TOTAL TIME: 32 minutes. TANISHA LEI DO DR: RUSSELL/irma JOB#: [id number] / [id number]
--- NOTE | 2018-09-01 12:38 | NUR ---
Discharge instructions and medications reviewed with patient. He verbalized understanding all instructions. Discharge packet given to guards. Attempted to call report to [facility] times 3 without anyone answering phone. Messages left to return call for report. Patient ready for discharge when van arrives to dc with guards.
--- NOTE | 2018-09-01 12:58 | NUR ---
Patient orders faxed and report called to Katherine BLANK at [facility]. Guards have patient packet for discharge. Patient ready for discharge when Van arrives. See orders and nursing communication.
--- NOTE | 2018-09-01 13:11 | PDOC ---
Subjective: Subjective: Seen prior to discharge. Tolerating diet, no bleeding, no abd "fullness." Objective: Objective: Appreciate Dr. Montes's notes. Vital Signs: Vital Signs Date Time Temp Pulse Resp B/P (MAP) Pulse Ox O2 Delivery O2 Flow Rate FiO2 09/01/18 10:59 97.4 84 16 140/70 (93) 98 Room Air 97.4 Labs: Laboratory Tests Test 08/31/18 16:22 08/31/18 20:22 09/01/18 04:00 09/01/18 08:07 Glucose (Fingerstick) 218 mg/dL 220 mg/dL 83 mg/dL White Blood Count 1.4 x10^3/uL Red Blood Count 3.63 x10^6/uL Hemoglobin 8.2 g/dL Hematocrit 26.4 % Mean Corpuscular Volume 73 fL Mean Corpuscular Hemoglobin 23 pg Mean Corpuscular Hemoglobin Concent 31 g/dL Red Cell Distribution Width 19.2 % Platelet Count 39 x10^3/uL Neutrophils (%) (Auto) 67 % Lymphocytes (%) (Auto) 21 % Monocytes (%) (Auto) 10 % Eosinophils (%) (Auto) 2 % Basophils (%) (Auto) 1 % Neutrophils # (Auto) 0.9 x10^3uL Lymphocytes # (Auto) 0.3 x10^3/uL Monocytes # (Auto) 0.1 x10^3/uL Eosinophils # (Auto) 0.0 x10^3/uL Basophils # (Auto) 0.0 x10^3/uL Sodium Level 141 mmol/L Potassium Level 3.9 mmol/L Chloride Level 108 mmol/L Carbon Dioxide Level 24 mmol/L Anion Gap 9 Blood Urea Nitrogen 6 mg/dL Creatinine 0.8 mg/dL Estimated GFR (Cockcroft-Gault) 97.6 BUN/Creatinine Ratio 8 Glucose Level 109 mg/dL Calcium Level 8.1 mg/dL Total Bilirubin 0.8 mg/dL Aspartate Amino Transf (AST/SGOT) 26 U/L Alanine Aminotransferase (ALT/SGPT) 23 U/L Alkaline Phosphatase 78 U/L Total Protein 7.0 g/dL Albumin 2.8 g/dL Albumin/Globulin Ratio 0.7 Test 09/01/18 11:51 Glucose (Fingerstick) 172 mg/dL PE: GEN: NAD LUNGS: CTAB HEART: RRR ABD: round, non-tender NEURO/PSYCH: A & O 3 A/P: Abdominal fullness - resolved Pancytopenia - chronic Cirrhosis H/o HCC s/p TACE - favorable results on MRI 01/2018 -- DC per primary. Follow-up w/ [facility]. JOSELIN MCDONALD Sep 01, 2018 13:11
--- NOTE | 2018-09-01 13:47 | NUR ---
Patient discharge to [facility] with guards with copied chart and orders packet.
[2018-09-03] MEDS ORDERED: metFORMIN 500 MG TABLET PO SCH (08:00)
== END 2018-09-01 13:50 | disposition home or self-care (01) | DRG 433 ==
LOC: ER 03:36 → EEVIPCON 03:36 → EDBD 03:36 → 5 NORTH 05:31
PROVIDERS: ADMIT Internal Medicine; ATTEND Internal Medicine
DX: K70.30 Alcoholic cirrhosis of liver without ascites (principal); D61.818 Other pancytopenia; D68.9 Coagulation defect, unspecified; C22.0 Liver cell carcinoma; K76.6 Portal hypertension; I85.10 Secondary esophageal varices without bleeding; F10.20 Alcohol dependence, uncomplicated; F14.10 Cocaine abuse, uncomplicated; R16.1 Splenomegaly, not elsewhere classified; I86.4 Gastric varices; B19.20 Unspecified viral hepatitis C without hepatic coma; N40.0 Benign prostatic hyperplasia without lower urinary tract symptoms; K80.20 Calculus of gallbladder without cholecystitis without obstruction; E11.36 Type 2 diabetes mellitus with diabetic cataract; E78.5 Hyperlipidemia, unspecified; F12.90 Cannabis use, unspecified, uncomplicated
CPT/HCPCS: 36415; 74177; 80053; 82962; 83690; 85007; 85025; 85610; 85730; 86850; 86900; 86901; 87641; 93005; J1815; J7030; Q9967; 99285-25